=== PATIENT | male | born 1970 | race Caucasian/White ===

== ENCOUNTER 2025-04-05 10:22 | Inpatient (IN) | payer OTHER ==
[~2025-04-05] VITALS: Ht 188 cm; Wt 116.2 kg
--- NOTE | 2025-04-05 10:44 | ED.PDOC ---
History of Present Illness HPI Comments 54 year old male presents to the ED via EMS with a chief complaint of syncopal episode onset today (04/05/25). Patient states he was in court, was not feeling well, woke up on the ground surrounded by court staff and currently symptoms have improved. Per EMS, patient began experienced a witnessed syncopal episode, was shaking, pale, diaphoretic. Patient states he has been experiencing RT knee pain for the past 2 weeks. Denies chest pain, shortness of breath, dizziness, headache, blurry vision, abdominal pain. No other symptoms or modifying factors present at this time. Chief Complaint: Seizure Time Seen by MD: 10:30 Reviewed Notes: Medications, Allergies Allergies: Coded Allergies: Sulfa Antibiotics (Unverified Allergy, Mild, 04/06/25) "Sensitivity, itchy after a few days." Information Source: Patient, Relative, Emergency Med Personnel Mode of Arrival: EMS Severity: Moderate Timing: Hours Duration: Since onset Prehospital treatment: None Past Medical History PAST MEDICAL HISTORY: Denies Surgical History: Denies all surgeries Family History Family History: Reviewed,noncontributory to illness, No family hx of Cancer, No family hx of DM, No family hx of Heart reena, No family hx of HTN, No family hx ofKidney reena, No family hx of Liver reena, No family hx of Lung reena, No family hx of Stroke Social History Smoker: Non-Smoker Alcohol: Denies ETOH Use Drugs: Denies Drug Use Lives In: Home Constitutional: reports: sweats; denies: chills, diaphoresis, fatigue, fever, malaise, weakness, others EENTM: denies: blurred vision, double vision, ear bleeding, ear discharge, ear drainage, ear pain, ear ringing, eye pain, eye redness, hearing loss, mouth pain, mouth swelling, nasal discharge, nose bleeding, nose congestion, nose pain, photophobia, tearing, throat pain, throat swelling, voice changes, others Respiratory: denies: cough, hemoptysis, orthopnea, SOB at rest, shortness of breath, SOB with excertion, stridor, wheezing, others Cardiovascular: denies: chest pain, dizzy spells, diaphoresis, Dyspnea on exertion, edema, irregular heart beat, left arm pain, lightheadedness, palpitations, PND, syncope, others Gastrointestinal: denies: abdomen distended, abdominal pain, blood streaked bowels, constipated, diarrhea, dysphagia, difficulty swallowing, hematemesis, melena, nausea, poor appetite, poor fluid intake, rectal bleeding, rectal pain, vomiting, others Genitourinary: denies: burning, dysuria, flank pain, frequency, hematuria, incontinence, penile discharge, penile sore, pain, testicle pain, testicle swelling, urgency, others Neurological: reports: others (syncope); denies: dizziness, fainting, headache, left sided numbness, left sided weakness, numbness, paresthesia, pre-existing deficit, right sided numbness, right sided weakness, seizure, speech problems, tingling, tremors, weakness Musculoskeletal: reports: others (RT knee pain); denies: back pain, gout, joint pain, joint swelling, muscle pain, muscle stiffness, neck pain Integumetry: denies: bruises, change in color, change in hair/nails, dryness, laceration, lesions, lumps, rash, wounds, others Allergic/Immunocompromised: denies: Difficulty Healing, Frequent Infections, Hives, Itching, others Hematologic/Lymphatic: denies: anemia, blood clots, easy bleeding, easy bruising, swollen glands, others Endocrine: denies: excessive hunger, excessive sweating, excessive thirst, excessive urination, flushing, intolerance to cold, intolerance to heat, unexplained weight gain, unexplained weight loss, others Psychiatric: denies: anxiety, bipolar disorder, depression, hopeless, panic disorder, schizophrenia, sleepless, suicidal, others All Other Systems: Reviewed and Negative Physical Exam General Appearance: No Apparent Distress, Normal HEENT: Normal ENT Inspection, Pharynx Normal, TMs Normal Neck: Full Range of Motion, Non-Tender, Normal, Normal Inspection Respiratory: Chest Non-Tender, Lungs Clear, No Accessory Muscle Use, No Respiratory Distress, Normal Breath Sounds Cardiovascular: No Edema, No JVD, No Murmur, No Gallop, Normal Peripheral Pulses, Regular Rate/Rhythm Breast Exam: Deferred Gastrointestinal: No Organomegaly, Non Tender, No Pulsatile Mass, Normal Bowel Sounds, Soft Genitalia: Deferred Pelvic: Deferred Rectal: Deferred Extremities: No calf tenderness, Normal capillary refill, Normal inspection, Normal range of motion, Non-tender, No pedal edema Musculoskeletal : Apperance: Normal Neurologic: Alert, elevator runner II-XII nml as Tested, No Motor Deficits, Normal Affect, Normal Mood, No Sensory Deficits Cerebellar Function: Normal Reflexes: Normal Skin: Dry, Normal Color, Warm Lymphatic: No Adenopathy Was a procedure done? Was a procedure done?: No Differential Dx Considerations may include: CVA, ACS, epilepsy, cardiac arrhythmia, electrolyte abnormality, urinary tract infection X-Ray, Labs, Meds, VS Vital Signs Date Time Temp Pulse Resp B/P (MAP) Pulse Ox O2 Delivery O2 Flow Rate FiO2 04/05/25 14:00 66 15 118/69 (85) 94 04/05/25 12:00 61 17 122/79 (93) 95 04/05/25 10:49 69 12 95 Room Air* 0 21 04/05/25 10:41 97.8 69 12 123/78 (93) 95 97.8 04/05/25 10:31 97.8 65 19 126/81 (96) 98 97.8 04/05/25 10:25 63 Lab Test 04/05/25 11:35 04/05/25 10:48 Range/Units Troponin I High Sensitivity < 3 L < 3 L </=54 ng/L White Blood Count 5.1 4.4-10.8 10^3/uL Red Blood Count 4.60 4.5-5.90 10^6/uL Hemoglobin 14.0 13.5-17.5 g/dL Hematocrit 40.8 L 41.0-53.0 % Mean Corpuscular Volume 88.7 80.0-100.0 fL Mean Corpuscular Hemoglobin 30.4 28.0-32.0 pg Mean Corpuscular Hemoglobin Concent 34.3 32.0-36.0 g/dL Red Cell Distribution Width 13.3 11.8-14.3 % Platelet Count 181 140-450 10^3/uL Mean Platelet Volume 9.7 6.9-10.8 fL Neutrophils (%) (Auto) 57.6 37.0-80.0 % Lymphocytes (%) (Auto) 16.2 10.0-50.0 % Monocytes (%) (Auto) 10.6 0.0-12.0 % Eosinophils (%) (Auto) 14.7 H 0.0-7.0 % Basophils (%) (Auto) 0.9 0.0-2.0 % Neutrophils # (Auto) 2.9 1.6-8.6 10 ^3/uL Lymphocytes # (Auto) 0.8 0.4-5.4 10 ^3/uL Monocytes # (Auto) 0.5 0-1.3 10 ^3/uL Eosinophils # (Auto) 0.8 0-0.8 10 ^3/uL Basophils # (Auto) 0 0-0.2 10 ^3/uL Nucleated Red Blood Cells 0.2 % Erythrocyte Sedimentation Rate 6 0-20 mm/hr Sodium Level 139 136-145 mmol/L Potassium Level 4.6 3.5-5.1 mmol/L Chloride Level 103 98-107 mmol/L Carbon Dioxide Level 28 20-31 mmol/L Anion Gap 8 5-15 Blood Urea Nitrogen 24 H 9-23 mg/dL Creatinine 1.31 H 0.700-1.30 mg/dL Glomerular Filtration Rate Calc 65 >90 mL/min BUN/Creatinine Ratio 18.3 10.0-20.0 Serum Glucose 110 H 74-106 mg/dL Hemoglobin A1c 5.2 <5.7 % A1C Uric Acid 6.4 3.7-9.2 mg/dL Calcium Level 10.3 8.7-10.4 mg/dL Total Bilirubin 0.8 0.2-1.0 mg/dL Aspartate Amino Transferase (AST) 20 13-40 U/L Alanine Aminotransferase (ALT) 21 7-40 U/L Alkaline Phosphatase 41 L 46-116 U/L C-Reactive Protein High Sensitivity 0.09 <1.0 mg/dL Total Protein 6.9 5.7-8.2 g/dL Albumin 4.6 3.2-4.8 g/dL Triglycerides Level 117 < 150 mg/dL Cholesterol Level 167 < 200 mg/dL LDL Cholesterol 100 H < 100 mg/dL HDL Cholesterol 54 40-59 mg/dL Thyroid Stimulating Hormone (TSH) 1.54 0.55-4.78 uIU/mL Time of 1ST Reevaluation: 11:00 Reevaluation 1ST: Unchanged Patient Education/Counseling: Diagnosis, Treatment, Prognosis Family Education/Counseling: Diagnosis, Treatment, Prognosis Additional Information The following tests were ordered, and results were reviewed by me: EKG -x3, CBC, CMP, UA, TROP -x3, XY CHEST, CT HEAD WO CONTRAST, XY R KNEE 4V Additional Information was gathered from interviewing the following independent historians: EMS, daughter I reviewed and agreed with the following test results read by other providers: XY CHEST, CT HEAD WO CONTRAST, XY R KNEE 4V I discussed treatment and results with medical personnel and: patient, daughter Comprehensive systems review obtained and negative except for what is stated in the HPI. Departure 1 Departure Time of Disposition: 17:22 (Patient presented with syncope today and should be admitted. Data: 1. I ordered and reviewed the result of at least 3 labs including a CBC, BMP, and troponin. 2. I independently interpreted the following tests: EKG which shows a normal sinus and a chest x-ray which shows benign chest and a CT head which shows benign brain.Risk:This patient has a high risk of morbidity due to further diagnostic testing or treatment and may suffer from an acute cardiac, neurologic, or infectious disorder. Rationale: Patient should be admitted to the hospital for further management.) Impression: Primary Impression: Syncope and collapse Additional Impression: Right knee pain Qualified Codes: M25.561 - Pain in right knee Disposition: 09 ADMITTED INPATIENT Admit to: Tele Condition: Guarded Critical Care Note Critical Care Time?: Yes Critical care comment: Syncope and collapse Authorized and Performed by: Vijay Aguilar MD Total critical care time: Approximately 38 minutes Due to a high probability of clinically significant, life threatening deterioration, the patient required my highest level of preparedness to intervene emergently and I personally spent this critical care time directly and personally managing the patient. This critical care time included obtaining a history; examining the patient; pulse oximetry; ordering and review of studies; arranging urgent treatment with development of a management plan; evaluation of patient's response to treatment; frequent reassessment; and, discussions with other providers. This critical care time was performed to assess and manage the high probability of imminent, life-threatening deterioration that could result in multi-organ failure. It was exclusive of separately billable procedures and treating other patients and teaching time. Please see my other sections and the rest of the note for further information on patient assessment and treatment. Stability Stability form required: No I personally scribed for VIJAY AGUILAR MD ([email or web address]) on 04/05/25 at 10:44. Electronically submitted by Sandra Michele ([email or web address]). I personally scribed for VIJAY AGUILAR MD ([email or web address]) on 04/05/25 at 10:53. Electronically submitted by Sandra Michele ([email or web address]). I personally scribed for VIJAY AGUILAR MD ([email or web address]) on 04/05/25 at 10:56. Electronically submitted by Sandra Michele ([email or web address]). VIJYA AGUILAR MD April 05, 2025 10:44
[2025-04-05 10:49] VITALS: PULSE 69; RESP 12; O2SAT 95
[2025-04-05 11:13] LABS: Basophils # (auto) 0 10 ^3/uL (0-0.2); Basophils % (auto) 0.9 % (0.0-2.0); Eosinophils # (auto) 0.8 10 ^3/uL (0-0.8); Eosinophils % (auto) 14.7 % (0.0-7.0); Hematocrit 40.8 % (41.0-53.0); Lymphocytes # (auto) 0.8 10 ^3/uL (0.4-5.4); Lymphocytes % (auto) 16.2 % (10.0-50.0); Mean Corpuscular Hemoglobin 30.4 pg (28.0-32.0); Mean Corpuscular Hgb Conc. 34.3 g/dL (32.0-36.0); Mean Corpuscular Volume 88.7 fL (80.0-100.0); Monocytes # (auto) 0.5 10 ^3/uL (0-1.3); Monocytes % (auto) 10.6 % (0.0-12.0); Neutrophils # (auto) 2.9 10 ^3/uL (1.6-8.6); Neutrophils % (auto) 57.6 % (37.0-80.0); Nucleated Red Blood Cells % 0.2 %; Platelet Count (auto) 181 10^3/uL (140-450); Red Cell Distribution Width 13.3 % (11.8-14.3); White Blood Cell 5.1 10^3/uL (4.4-10.8)
[2025-04-05 11:20] LABS: Alanine Aminotransferase 21 U/L (7-40); Albumin 4.6 g/dL (3.2-4.8); Anion Gap 8 (5-15); Aspartate Aminotransferase 20 U/L (13-40); BUN/Creatinine Ratio 18.3 (10.0-20.0); Bilirubin, Total 0.8 mg/dL (0.2-1.0); Calcium 10.3 mg/dL (8.7-10.4); Carbon Dioxide 28 mmol/L (20-31); Chloride 103 mmol/L (98-107); Potassium 4.6 mmol/L (3.5-5.1); Sodium 139 mmol/L (136-145); Total Protein 6.9 g/dL (5.7-8.2)
[2025-04-05 11:21] LABS: Alkaline Phosphatase 41 U/L (46-116); Blood Urea Nitrogen 24 mg/dL (9-23); Glucose 110 mg/dL (74-106)
--- NOTE | 2025-04-05 11:23 | DVH ---
EXAM: CT HEAD WITHOUT CONTRAST HISTORY: syncope COMPARISON: None TECHNIQUE: Axial images of the head were obtained and reformatted in coronal and sagittal planes. All CT scans at this medical facility are performed using dose modulation techniques as appropriate t o a performed exam including the following: Automated exposure control was utilized; adjustment of th e MA and/or KV according to patient size; and use of iterative reconstruction technique. CT Dose: CTDI volume is 66.29 mGy. Dose-length product is 1062.42 mGy*cm FINDINGS: There is no evidence of acute intracranial hemorrhage, mass, mass effect midline shift. There is no h ydrocephalus or extra-axial fluid collection. Allen-white matter differentiation is maintained. The visualized paranasal sinuses and mastoid air cells are clear. The calvarium is intact. IMPRESSION: 1. No acute intracranial process. HS:Y
--- NOTE | 2025-04-05 11:45 | DVH ---
Indication: right knee pain Technique: 4 views right knee Comparison: None FINDINGS/IMPRESSION: No radiographic evidence for acute fracture or dislocation. Moderate tricompartmental degenerative j oint disease. Large suprapatellar effusion. Old MCL injury. Enthesopathy at quadriceps insertion upon the patella
--- NOTE | 2025-04-05 11:47 | DVH ---
CHEST RADIOGRAPH Indication: syncope Technique: Single frontal view of the chest was obtained Comparison: None FINDINGS: The cardiac silhouette is unremarkable. The lungs demonstrate perihilar airspace opacities. The pulmo nary vasculature is prominent. There is no pleural effusion.. There is no pneumothorax. IMPRESSION: 1. vascular congestion and bilateral perihilar airspace opacities.Pulmonary
[2025-04-05] MEDS: SODIUM CHLORIDE 0.9% 1,000 ML IV ONE ×2 (12:15→18:56)
[2025-04-05] MEDS ORDERED: ONDANSETRON HCL 4 MG/2 ML VIAL IV PRN (15:45)
[2025-04-05] MEDS ORDERED: ACETAMINOPHEN 325 MG TAB PO PRN (15:45)
[2025-04-05] MEDS ORDERED: MORPHINE SULFATE INJ 2 MG/ml SYRG IV PRN ×2 (15:45)
[2025-04-05] MEDS ORDERED: NITROGLYCERIN 0.4 MG SL TAB SL PRN (15:45)
[2025-04-05] MEDS ORDERED: HYDROcodone-ACET 5/325MG TAB PO PRN (15:45)
--- NOTE | 2025-04-05 16:14 | DVHHP2 ---
History of Present Illness Reason for Visit: Syncope History of Present Illness Jaleel Catalan is a 54-year-old male with past medical history of degenerative disc disease who presents to the ED with a syncopal episode while in court. Patient states that he was sitting down in the court house when suddenly he felt a sugar oliveira for about 5 minutes and passed out. Per court reports from the [facility] from at bedside and Rachael daughter at bedside his hands were shaking as well as his entire body his lips were blue in his skin green with his eyes rolled back and diaphoretic with slurred speech. Patient reports that his stomach felt like it was turning and uncomfortable. When he came to the [facility] was helping him. EMS was called and he is here for evaluation. Patient also reports that his right knee with activity or movement causes him moderate pain, but when resting still, no pain noted. Patient reported that in the mornings he typically eats granola bars and banana. at the bedside states that when he goes to sleep at night he does snore and he has a dry cough with no phlegm production. 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 Patient denies any recent trauma or injury, recent sick contacts, fever or chills, chest pain, shortness of breath, weakness, dizziness, abdominal pain, nausea, vomiting, or diarrhea. Past Medical History Degenerative disc disease Past Surgical History: None Family History: DM, Hypertension, Other (Mom with hypertension, scoliosis, and diabetes) Smoke: <1 pack per day (Vapes) ALCOHOL: occassional Drugs: None Lives: with Family Domestic Violence: Neg Review of Systems Constitutional: Yes: Sweats, Other (Syncope) Allergies: Coded Allergies: Sulfa Antibiotics (Unverified Allergy, Unknown, 04/05/25) Exam Vital Signs Vital Signs Date Time Temp Pulse Resp B/P (MAP) Pulse Ox O2 Delivery O2 Flow Rate FiO2 04/05/25 14:00 66 15 118/69 (85) 94 04/05/25 10:49 Room Air* 0 21 04/05/25 10:41 97.8 97.8 General Appearance: Alert, Oriented X3, Cooperative, No acute distress HEENT: Atraumatic, PERRLA, EOMI, Mucous membr. moist/pink Respiratory: Clear to auscultation, Normal air movement Cardiovascular: Regular rate, Normal S1, Normal S2, No murmurs Abdominal: Normal bowel sounds, Soft, No tenderness, No hepatospenomegaly Extremities: No clubbing, No cyanosis, No edema, Normal pulses, No tenderness/swelling Skin: No significant lesion Neuro: Normal speech, Strength at 5/5 X4 ext, Normal tone, Sensation intact Psych/Mental Status: Mental status NL, Mood NL Labs/Xrays Labs Test 04/05/25 11:35 04/05/25 10:48 Range/Units Troponin I High Sensitivity < 3 L </=54 ng/L White Blood Count 5.1 4.4-10.8 10^3/uL Red Blood Count 4.60 4.5-5.90 10^6/uL Hemoglobin 14.0 13.5-17.5 g/dL Hematocrit 40.8 L 41.0-53.0 % Mean Corpuscular Volume 88.7 80.0-100.0 fL Mean Corpuscular Hemoglobin 30.4 28.0-32.0 pg Mean Corpuscular Hemoglobin Concent 34.3 32.0-36.0 g/dL Red Cell Distribution Width 13.3 11.8-14.3 % Platelet Count 181 140-450 10^3/uL Mean Platelet Volume 9.7 6.9-10.8 fL Neutrophils (%) (Auto) 57.6 37.0-80.0 % Lymphocytes (%) (Auto) 16.2 10.0-50.0 % Monocytes (%) (Auto) 10.6 0.0-12.0 % Eosinophils (%) (Auto) 14.7 H 0.0-7.0 % Basophils (%) (Auto) 0.9 0.0-2.0 % Neutrophils # (Auto) 2.9 1.6-8.6 10 ^3/uL Lymphocytes # (Auto) 0.8 0.4-5.4 10 ^3/uL Monocytes # (Auto) 0.5 0-1.3 10 ^3/uL Eosinophils # (Auto) 0.8 0-0.8 10 ^3/uL Basophils # (Auto) 0 0-0.2 10 ^3/uL Nucleated Red Blood Cells 0.2 % Sodium Level 139 136-145 mmol/L Potassium Level 4.6 3.5-5.1 mmol/L Chloride Level 103 98-107 mmol/L Carbon Dioxide Level 28 20-31 mmol/L Anion Gap 8 5-15 Blood Urea Nitrogen 24 H 9-23 mg/dL Creatinine 1.31 H 0.700-1.30 mg/dL Glomerular Filtration Rate Calc 65 >90 mL/min BUN/Creatinine Ratio 18.3 10.0-20.0 Serum Glucose 110 H 74-106 mg/dL Calcium Level 10.3 8.7-10.4 mg/dL Total Bilirubin 0.8 0.2-1.0 mg/dL Aspartate Amino Transferase (AST) 20 13-40 U/L Alanine Aminotransferase (ALT) 21 7-40 U/L Alkaline Phosphatase 41 L 46-116 U/L Total Protein 6.9 5.7-8.2 g/dL Albumin 4.6 3.2-4.8 g/dL Thyroid Stimulating Hormone (TSH) 1.54 0.55-4.78 uIU/mL Indication: right knee pain Technique: 4 views right knee Comparison: None FINDINGS/IMPRESSION: No radiographic evidence for acute fracture or dislocation. Moderate tricompartmental degenerative joint disease. Large suprapatellar effusion. Old MCL injury. Enthesopathy at quadriceps insertion upon the patella EXAM: CT HEAD WITHOUT CONTRAST HISTORY: syncope COMPARISON: None TECHNIQUE: Axial images of the head were obtained and reformatted in coronal and sagittal planes. All CT scans at this medical facility are performed using dose modulation techniques as appropriate to a performed exam including the following: Automated exposure control was utilized; adjustment of the MA and/or KV according to patient size; and use of iterative reconstruction technique. CT Dose: CTDI volume is 66.29 mGy. Dose-length product is 1062.42 mGy*cm FINDINGS: There is no evidence of acute intracranial hemorrhage, mass, mass effect midline shift. There is no hydrocephalus or extra-axial fluid collection. Allen-white matter differentiation is maintained. The visualized paranasal sinuses and mastoid air cells are clear. The calvarium is intact. IMPRESSION: 1. No acute intracranial process. CHEST RADIOGRAPH Indication: syncope Technique: Single frontal view of the chest was obtained Comparison: None FINDINGS: The cardiac silhouette is unremarkable. The lungs demonstrate perihilar airspace opacities. The pulmonary vasculature is prominent. There is no pleural effusion.. There is no pneumothorax. IMPRESSION: 1. vascular congestion and bilateral perihilar airspace opacities.Pulmonary Assessment/Plan Assessment/Plan Assessment Autonomic imbalance Right large suprapatellar effusion rule out septic arthritis versus gout KENAN Obesity Old MCL injury noted on imaging Vapes Alcohol use History of degenerative disc disease Plan Admit to [facility] IV antibiotics-ceftriaxone Blood cultures Lactic level CRP ESR Hemoglobin A1c Lipid panel Antiemetics Pain management Echo ordered Uric acid UA NS 1 L given ED TSH Ortho consult by ED Right knee x-ray noted CT head noted Chest x-ray noted Troponin negative x2 EKG noted Per patient does not take home medications DVT prophylaxis-not indicated patient ambulating PUD prophylaxis-not indicated no history of GERD or GI bleed Discussed plan of care with patient, patient's spouse, daughter, and nurse Counseled patient on cessation of vape and LL use Counseled patient on lifestyle modifications, diet, and exercise Plan discussed with: Patient, Spouse, Daughter, Other My Orders 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 - 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 Procedure Category Date Status Time Lactic Acid W/ Reflex LAB 04/05/25 Verified Order 15:32 Blood Culture TRACY 04/05/25 Verified 15:32 Erythrocyte LAB 04/05/25 Verified Sedimentation Rate 15:32 C-Reactive Protein LAB 04/05/25 Verified 15:32 Hemoglobin A1c LAB 04/05/25 Verified 15:32 Echo 2d Mode Cardiac US 04/05/25 Verified DOP 15:32 Admit ADMIT 04/05/25 Verified 15:32 Allergies EBENEZER 04/05/25 Verified 15:32 Code Status CODE 04/05/25 Verified 15:32 Hydrocodone-Acet PHA 04/05/25 Verified 5/325mg Tab ([place] 15:45 Ondansetron Hcl PHA 04/05/25 Verified (Zofran) 15:45 Complete Blood Count LAB 04/06/25 Verified 04:00 Comprehensive LAB 04/06/25 Verified Metabolic Panel 04:00 Cardiac DIET 04/05/25 Verified Diet-2gna,Lofat,Lochol Dinner Acetaminophen Tablet PHA 04/05/25 Verified (Tylenol Tablet) 15:45 Morphine Sulfate PHA 04/05/25 Verified Injection 15:45 Nitroglycerin PHA 04/05/25 Verified Sublingual (Ntrostat 15:45 Morphine Sulfate PHA 04/05/25 Verified Injection 15:45 Stat Ekg For Chest EBENEZER 04/05/25 Verified Pain 15:32 Notify Of Changes EBENEZER 04/05/25 Verified From Base 15:32 Academic Registrar For EBENEZER 04/05/25 Verified 24 Hours 15:32 Emergency Dysrhythmia EBENEZER 04/05/25 Verified Protocol 15:32 Rhythm Strips Once EBENEZER 04/05/25 Verified Every Shift 15:32 Oxygen By Nasal RT 04/05/25 Verified Cannula 15:32 Date of Service: April 05, 2025 Billing Provider: CHRYSTAL MEDELLIN Common Visit Codes: [id number] INP/OBS CARE (HIGH) CHRYSTAL MEDELLIN April 05, 2025 16:14
[2025-04-05] MEDS: cefTRIAXone 1GM/50ML D5W 50 ML IV SCH (16:45)
[2025-04-05 16:49] LABS: Urine Bacteria None Seen /hpf (None Seen)
[2025-04-05 16:52] LABS: Erythrocyte Sedimentation Rate 6 mm/hr (0-20)
[2025-04-05 16:58] LABS: Urine Blood Negative /uL (Negative); Urine Clarity Clear (Clear); Urine Color Light-Yellow (Yellow); Urine Protein, UAD Negative (Negative); Urine Specific Gravity 1.009 (1.001-1.035); Urine Squamous Epithelial Cell None Seen /hpf (<5); Urine Urobilinogen Normal (Negative); Urine WBC < 1 /HPF (0-3)
[2025-04-05 17:01] LABS: Triglycerides 117 mg/dL (< 150)
[2025-04-05 17:02] LABS: LDL Cholesterol 100 mg/dL (< 100)
[2025-04-05 17:03] LABS: Cholesterol 167 mg/dL (< 200); HDL Cholesterol 54 mg/dL (40-59)
--- NOTE | 2025-04-05 17:17 | DVH ---
PROCEDURE: MRI MRA ANGIO HEAD BRAIN INDICATION: syncopal Exam Date: 04/05/2025 04:31 PM COMPARISON: None TECHNIQUE: MRA head without intravenous contrast. 3D image postprocessing was performed on a dedicated workstation and images were used for interpretat ion and reporting. FINDINGS: MRA head: There is preserved flow within the bilateral distal internal carotid arteries. There is preserved fl ow within the anterior and middle cerebral arteries. There is preserved flow within the vertebral ar teries, basilar artery, cerebellar arteries and posterior cerebral arteries. There is no evidence of hemodynamically significant intracranial stenosis, proximal occlusion or aneurysm. No abnormal veno us signal is seen. IMPRESSION: 1. No evidence of hemodynamically significant intracranial stenosis, proximal occlusion or aneurysm. HS:Y
--- NOTE | 2025-04-05 17:24 | DVH ---
EXAM: MRI BRAIN HEAD WO CONTRAST CLINICAL HISTORY: syncopal episode COMPARISON: None TECHNIQUE: Multiplanar, multisequence magnetic resonance imaging of the brain was performed after the administra tion of intravenous contrast. FINDINGS: Normal brain volume and formation. No hemorrhages, masses, mass effect, midline shift, herniation or cytotoxic edema following large vas cular territory. No intra-axial or extra-axial fluid collections. No evidence of hydrocephalus. The basal cisterns are patent Sella parasellar regions unremarkable. The cerebellar tonsils are normal position. The cerebellum is unremarkable. The orbits and globes unremarkable. Minimal mucoperiosteal thickening of the ethmoid air cells and in ferior maxillary sinuses. The remainder of the paranasal sinuses and mastoids are clear. There are No worrisome calvarial lesions. IMPRESSION: No evidence of acute intracranial abnormalities.
[2025-04-05 18:04] VITALS: BP 98/58; PULSE 75; RESP 18; TEMP 98.2; O2SAT 99
--- NOTE | 2025-04-05 18:35 | ECG ---
[facility] Test Date: 2025-04-05 Test Time: 16:10:55 Pat Name: HANNAH ABREU Department: ED Room: 0201T A Gender: M [employer]: [place] : 1970 Requested By: VIJAY CURTIS Order Number: [id number] Reading MD: Bronson Chu Measurements Intervals [place] Rate: 58 P: 30 DC: 171 QRS: 4 QRSD: 88 T: 49 QT: 424 QTc: 417 Interpretive Statements Sinus rhythm Low voltage, precordial leads Abnormal R-wave progression, early transition Electronically Signed On 04-06-2025 21:03:58 PDT by Bronson Chu Please click the below link to view image of tracing.
--- NOTE | 2025-04-05 18:41 | DVH ---
Procedure: MRI RT KNEE WITH OUT CON 04/05/2025 04:59 PM INDICATION: right knee pain COMPARISON: Radiograph dated 04/05/2025 TECHNIQUE: MRI of the right knee was performed utilizing multiple appropriate imaging planes and puls e sequences. FINDINGS: Medial meniscus: Large superior surfacing horizontal tear of the body and posterior horn. Lateral meniscus: Mucoid degeneration with no evidence for tear. Anterior cruciate ligament: Unremarkable. Posterior cruciate ligament: Unremarkable. Medial collateral ligament: Unremarkable. Lateral stabilizers: Unremarkable. Extensor mechanism: Unremarkable. Pes anserine Tendons: Unremarkable. Medial compartment: High-grade thinning and irregularity of the articular cartilage specially over th e femoral condyle with associated subchondral marrow edema and mild marginal osteophytosis. Lateral compartment: Moderate irregularity and fissuring in the weight-bearing part of the femoral co ndyle with associated central osteophytosis. Patellofemoral compartment: Unremarkable. Bones: No suspicious lesion. Joint Effusion: Large. Popliteal fossa: Large Reed's cyst. Other: None. IMPRESSION: 1. Tricompartmental osteoarthritis, most prominent and moderate severity in the medial compartment wi th full-thickness loss of articular cartilage, marginal osteophytosis medial meniscal tear. 2. Large suprapatellar joint effusion. 3. Large leaking Reed's cyst.
--- NOTE | 2025-04-05 18:49 | ECG ---
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
[2025-04-05] MEDS ORDERED: SODIUM CHLORIDE 0.9% 1,000 ML IV ONE (19:00)
[2025-04-05 20:00] VITALS: PULSE 69; PULSE 70; RESP 19; O2SAT 94
--- NOTE | 2025-04-05 20:19 | DVH ---
Carotid Duplex Date: 04/05/2025 06:42 PM Clinical History: syncopal episode Comparison: None Technique: Duplex Doppler evaluation of the extracranial carotid and vertebral arteries including col or Doppler and spectral/pulsed waveform analysis was performed. Findings: RIGHT SIDE: The peak systolic velocities are 101 cm/s in the distal CCA and 87 cm/s in the proximal ICA.The ICA/C CA ratio is less than 1. The external carotid artery is patent with peak systolic velocity of 96 cm/s proximally. There is appropriate antegrade flow in the right vertebral artery. 42.3 cm/s LEFT SIDE: The peak systolic velocities are 85.9 cm/s in the distal CCA and 127.6 cm/s in the proximal ICA.. The ICA/CCA ratio is less than 2. The external carotid artery is patent with peak systolic velocity of 74.1 cm/s proximally. There is appropriate antegrade flow in the left vertebral artery, 50.6 cm/s IMPRESSION: 1. No hemodynamically significant stenosis noted in the right carotid system. 2. No hemodynamically significant stenosis noted in the left carotid system. 3. Reference: Radiology 2003; 229:340-346
[2025-04-05 21:00] VITALS: BP 113/68; PULSE 70; RESP 19; TEMP 97.1; O2SAT 94
[2025-04-06] VITALS (9 sets, daily range): BP systolic 103–130; BP diastolic 57–84; PULSE 56–78; RESP 18–19; TEMP 96.3–98.1; O2SAT 91–98
[2025-04-06 06:38] LABS: Basophils # (auto) 0 10 ^3/uL (0-0.2); Basophils % (auto) 0.6 % (0.0-2.0); Eosinophils # (auto) 0.8 10 ^3/uL (0-0.8); Eosinophils % (auto) 14.9 % (0.0-7.0); Hematocrit 38.4 % (41.0-53.0); Lymphocytes # (auto) 1.2 10 ^3/uL (0.4-5.4); Lymphocytes % (auto) 22.5 % (10.0-50.0); Mean Corpuscular Hemoglobin 30.3 pg (28.0-32.0); Mean Corpuscular Hgb Conc. 33.7 g/dL (32.0-36.0); Mean Corpuscular Volume 89.8 fL (80.0-100.0); Monocytes # (auto) 0.5 10 ^3/uL (0-1.3); Monocytes % (auto) 9.7 % (0.0-12.0); Neutrophils # (auto) 2.8 10 ^3/uL (1.6-8.6); Neutrophils % (auto) 52.3 % (37.0-80.0); Platelet Count (auto) 168 10^3/uL (140-450); Red Blood Cells 4.28 10^6/uL (4.5-5.90); Red Cell Distribution Width 13.6 % (11.8-14.3); White Blood Cell 5.3 10^3/uL (4.4-10.8)
[2025-04-06 07:08] LABS: Alanine Aminotransferase 16 U/L (7-40); Anion Gap 9 (5-15); BUN/Creatinine Ratio 16.1 (10.0-20.0); Blood Urea Nitrogen 18 mg/dL (9-23); Calcium 9.3 mg/dL (8.7-10.4); Carbon Dioxide 26 mmol/L (20-31); Glucose 92 mg/dL (74-106); Sodium 143 mmol/L (136-145); Total Protein 6.1 g/dL (5.7-8.2)
[2025-04-06 07:09] LABS: Albumin 4.1 g/dL (3.2-4.8); Aspartate Aminotransferase 15 U/L (13-40)
[2025-04-06 07:10] LABS: Bilirubin, Total 0.5 mg/dL (0.2-1.0)
[2025-04-06 07:18] LABS: Alkaline Phosphatase 36 U/L (46-116); Chloride 108 mmol/L (98-107)
--- NOTE | 2025-04-06 09:25 | DVHINCON2 ---
Date of service: April 06, 2025 Reason for Consultation Right knee osteoarthritis History of Present Illness Mr. Catalan is a 54-year-old male who has been experiencing progressively worsening right knee pain for the last six months without a known injury or incident. Patient notes that he had a previous right knee injury that he was treating conservatively but was doing well for several years before the pain began again. Patient notes that at 1st the pain waxed and waned and would occasionally feel like something would get caught and his knee but over time it was progressively worsening and began limiting his physical activity. Patient is otherwise feeling well denying any other complaints or concerns during my evaluation. Past Medical History Degenerative disc disease Past Surgical History Denies Family History Noncontributory Social History Patient admits to vaping and occasional alcohol use but denied any other illicit substance abuse Allergies: Coded Allergies: Sulfa Antibiotics (Unverified Allergy, Unknown, 04/05/25) Current Medications Current Medications Medications (Trade) Dose Ordered Sig/Hamzah Route PRN Reason Start Time Stop Time Status Last Admin Acetaminophen/ Hydrocodone Bitart (Zortman 5/325MG Tab) 1 tab Q4HP PRN PO MODERATE PAIN (4-6 PAIN SCALE) 04/05/25 15:45 Ondansetron HCl (Zofran) 4 mg Q4HP PRN IV NAUSEA / VOMITING 04/05/25 15:45 Acetaminophen (Tylenol Tablet) 650 mg Q6HP PRN PO PAIN SCALE 1-3 OR TEMP>100.4 04/05/25 15:45 Morphine Sulfate 2 mg Q4HPRN PRN IV SEVERE PAIN (7-10 PAIN SCALE) 04/05/25 15:45 Nitroglycerin (Ntrostat Sublingual) 0.4 mg Q5MINP PRN SL FOR CHEST PAIN 04/05/25 15:45 Morphine Sulfate 2 mg Q30M PRN IV FOR CHEST PAIN 04/05/25 15:45 Ceftriaxone Sodium 50 ml @ 100 mls/hr DAILY@09 IV 04/05/25 16:00 04/05/25 16:45 Review of Systems 10 point review of systems negative except as per HPI Vital Signs Vital Signs Date Time Temp Pulse Resp B/P (MAP) Pulse Ox O2 Delivery O2 Flow Rate FiO2 04/06/25 05:00 96.4 67 19 104/66 (79) 93 96.4 04/05/25 20:00 Room Air* 0 21 Physical Exam General appearance: A&O x4 in no acute distress HEENT: Normal ENT inspection, pharynx normal, TMs normal Neck: Full range of motion, nontender, normal inspection Respiratory: Chest nontender, without accessory muscle use, no respiratory distress Cardiovascular: No edema, no JVD, normal peripheral pulses Gastrointestinal: Soft, nontender, no organomegaly. Musculoskeletal: Right knee range of motion 0-120 with pain on movement, mild edema to the knee, no calf tenderness, normal capillary refill, no pedal edema, neurovascularly intact. Skin: Dry, normal color, warm Lymphatic: No adenopathy Labs/Diagnostic Data Labs Test 04/06/25 04:33 04/05/25 16:21 04/05/25 16:00 04/05/25 11:35 Range/Units White Blood Count 5.3 4.4-10.8 10^3/uL Red Blood Count 4.28 L 4.5-5.90 10^6/uL Hemoglobin 13.0 L 13.5-17.5 g/dL Hematocrit 38.4 L 41.0-53.0 % Mean Corpuscular Volume 89.8 80.0-100.0 fL Mean Corpuscular Hemoglobin 30.3 28.0-32.0 pg Mean Corpuscular Hemoglobin Concent 33.7 32.0-36.0 g/dL Red Cell Distribution Width 13.6 11.8-14.3 % Platelet Count 168 140-450 10^3/uL Mean Platelet Volume 9.9 6.9-10.8 fL Neutrophils (%) (Auto) 52.3 37.0-80.0 % Lymphocytes (%) (Auto) 22.5 10.0-50.0 % Monocytes (%) (Auto) 9.7 0.0-12.0 % Eosinophils (%) (Auto) 14.9 H 0.0-7.0 % Basophils (%) (Auto) 0.6 0.0-2.0 % Neutrophils # (Auto) 2.8 1.6-8.6 10 ^3/uL Lymphocytes # (Auto) 1.2 0.4-5.4 10 ^3/uL Monocytes # (Auto) 0.5 0-1.3 10 ^3/uL Eosinophils # (Auto) 0.8 0-0.8 10 ^3/uL Basophils # (Auto) 0 0-0.2 10 ^3/uL Nucleated Red Blood Cells 0.0 % Sodium Level 143 136-145 mmol/L Potassium Level 4.0 3.5-5.1 mmol/L Chloride Level 108 H 98-107 mmol/L Carbon Dioxide Level 26 20-31 mmol/L Anion Gap 9 5-15 Blood Urea Nitrogen 18 9-23 mg/dL Creatinine 1.12 0.700-1.30 mg/dL Glomerular Filtration Rate Calc 78 >90 mL/min BUN/Creatinine Ratio 16.1 10.0-20.0 Serum Glucose 92 74-106 mg/dL Calcium Level 9.3 8.7-10.4 mg/dL Total Bilirubin 0.5 0.2-1.0 mg/dL Aspartate Amino Transferase (AST) 15 13-40 U/L Alanine Aminotransferase (ALT) 16 7-40 U/L Alkaline Phosphatase 36 L 46-116 U/L Total Protein 6.1 5.7-8.2 g/dL Albumin 4.1 3.2-4.8 g/dL Urine Color Light-yellow Yellow Urine Clarity Clear Clear Urine pH 7.0 5.0-9.0 Urine Specific [place] 1.009 1.001-1.035 Urine Protein Negative Negative Urine Ketones Negative Negative Urine Blood Negative Negative /uL Urine Nitrite Negative Negative Urine Bilirubin Negative Negative Urine Urobilinogen Normal Negative mg/dL Urine Leukocyte Esterase Negative Negative /uL Urine RBC 1 0 - 3 /hpf Urine Microscopic WBC < 1 0-3 /HPF Urine Squamous Epithelial Cells None seen <5 /hpf Urine Bacteria None seen None Seen /hpf Urine Glucose Normal Normal mg/dL Lactic Acid Level 0.7 0.4-2.0 mmol/L Troponin I High Sensitivity < 3 L </=54 ng/L Test 04/05/25 10:48 Range/Units Erythrocyte Sedimentation Rate 6 0-20 mm/hr Hemoglobin A1c 5.2 <5.7 % A1C Uric Acid 6.4 3.7-9.2 mg/dL C-Reactive Protein High Sensitivity 0.09 <1.0 mg/dL Triglycerides Level 117 < 150 mg/dL Cholesterol Level 167 < 200 mg/dL LDL Cholesterol 100 H < 100 mg/dL HDL Cholesterol 54 40-59 mg/dL Thyroid Stimulating Hormone (TSH) 1.54 0.55-4.78 uIU/mL Right knee x-ray reviewed and demonstrated: No radiographic evidence for acute fracture or dislocation. Moderate tricompartmental degenerative joint disease. Large suprapatellar effusion. Right knee MRI reviewed and demonstrated: Tricompartmental osteoarthritis, most prominent and moderate severity in the medial compartment with full-thickness loss of articular cartilage, marginal osteophytosis medial meniscal tear. Large suprapatellar joint effusion. Large leaking Reed's cyst. Assessment Right knee osteoarthritis Plan/Recommendation I had a lengthy discussion with the patient and after discussing his case and reviewing his imaging studies with Dr. Kunz we have recommended against any surgical intervention at this time and instead advised to continue with conservative treatment with pain control and physical activity modification. For pain control I performed a right knee intra-articular steroid injection with 2 mL of triamcinolone and 4 mL of lidocaine done in a sterile fashion with the use of Betadine prep, patient tolerated the procedure well without complications. I advised the patient that he may remain weight-bearing as tolerated with assistance of a cane or walker when the pain is intense. I advised the patient to follow up with our office on an outpatient basis for further evaluation and treatment options. He understood and agreed. Thank you for allowing us to participate in the care of your patient. Plan discussed with: Patient, Daughter ERENDIRA MONTENEGRO SRIDHAR April 06, 2025 09:25
--- NOTE | 2025-04-06 17:04 | DVHSR ---
APPROVED REPORT EXAM: Two-dimensional and M-mode echocardiogram with Doppler and color Doppler. Blood Pressure: 104/66 mmHg INDICATION Syncope RISK FACTORS Obesity: Height: '2, Weight: 255 DIMENSIONS LVDd4.8 (3.8-5.7cm)LA (2D)3.7 (1.9-4.0cm)Aortic Root4.2 (2.0-3.7cm) LVDs3.4 (2.5-4.0cm)LA (MM) (1.9-4.0cm)Aortic Cusp Exc2.3 (1.5-2.0cm) EF (%) 54.0 (55-70%)Rt. Atrium4.5 (1.9-4.0cm)Asc. Aorta cm IVSd0.9 (0.7-1.1cm)RV (D)5.7 (1.8-2.4cm) PWd0.9 (0.7-1.1cm) Mitral Valve MitralMitral Stenosis E wave0.84m/sMV Mean GR.mmHg A wave0.63m/sMV Peak GR.53mmHg E/A ratio1.32D MVAcm2 DECEL [id number] 1/2 Timems Aortic Valve Aortic ValveAortic Stenosis V11.08m/Mandeep Mean GR.4mmHg V21.30m/Mandeep Peak GR.7mmHg LVOT Diameter2.6 (1.8-2.4cm)Doppler AVA4.41cm2 Pulmonic Valve V20.98m/s Tricuspid Valve TR Velocity1.90m/s [id number] Conclusion Sinus rhythm. Mild aortic root enlargement. Mild right ventricular outflow tract enlargement. Right atrial and ri ght ventricular enlargement. Valves appear to be structurally normal. Normal tricuspid pulmonic and aortic valves. Normal mitral valve. Mild MAC. Left ventricular function is preserved at 55-60%. Right ventricular function is normal. Doppler is unremarkable. No pericardial effusion masses or vegetations discernible.
--- NOTE | 2025-04-06 17:09 | DVHPN2 ---
Subjective 54-year-old male with a history of degenerative disc disease of the back otherwise no past medical history came with a chief complaint of syncope that happened yesterday Apparently [place] and he felt a sugar rash and then he passed out This has happened to him before when he had the syncope but it is always associated with an event such as when he had the flu or he was sick with diarrhea No chest pain no shortness a breath EKG shows bradycardia Chest x-ray vascular congestion bilaterally with a perihilar airspace opacities Head CT negative Right knee suprapatellar effusion and moderate tricompartmental degenerative joint disease Brain MRI and MRA is negative Carotid Doppler is negative MRI of the right knee shows tricompartmental osteoarthritis with a marginal ostial 5 ptosis medial meniscal tear and a large suprapatellar joint effusion and a large leaking Reed's cyst Labs showed normal CBC ESR 6 UA is negative Creatinine is high at 1.3 corrected to 1.1 today Cholesterol panel normal with the LDL of 100 Blood pressure is normal to low Heart rate at the time of examination this morning was 60 and regular Changes from previous H/P or p: Changes Objective Vitals Vital Signs Date Time Temp Pulse Resp B/P (MAP) Pulse Ox O2 Delivery O2 Flow Rate FiO2 04/06/25 12:59 97.8 56 18 115/79 (91) 94 97.8 04/06/25 08:00 Room Air* 0 21 Intake/Output Intake and Output 04/06/25 07:00 Intake Total 1750 ml Balance 1750 ml Intake Oral 800 ml IV Total 950 ml # Voids 5 # Bowel Movements 1 General Appearance: Alert, Oriented X3, Cooperative, No acute distress Lungs: Clear to auscultation, Normal air movement Cardiovascular: Regular rate, Normal S1, Normal S2, No murmurs Abdomen: Normal bowel sounds, Soft, No tenderness Extremities: No edema Medications Current Medications Medications Dose Ordered Sig/Hamzah Route Start Time Stop Time Status Last Admin Dose Admin Acetaminophen/ Hydrocodone Bitart 1 tab Q4HP PRN PO 04/05/25 15:45 Ondansetron HCl 4 mg Q4HP PRN IV 04/05/25 15:45 Acetaminophen 650 mg Q6HP PRN PO 04/05/25 15:45 Morphine Sulfate 2 mg Q4HPRN PRN IV 04/05/25 15:45 Nitroglycerin 0.4 mg Q5MINP PRN SL 04/05/25 15:45 Morphine Sulfate 2 mg Q30M PRN IV 04/05/25 15:45 Ceftriaxone Sodium 50 ml @ 100 mls/hr DAILY@09 IV 04/05/25 16:00 04/06/25 10:00 100 MLS/HR Laboratory Results Laboratory Tests 04/06/25 04:33 Chemistry Test 04/06/25 04:33 Albumin 4.1 g/dL (3.2-4.8) Calcium Level 9.3 mg/dL (8.7-10.4) Total Protein 6.1 g/dL (5.7-8.2) LFT Test 04/06/25 04:33 Alanine Aminotransferase (ALT) 16 U/L (7-40) Alkaline Phosphatase 36 U/L (46-116) L Aspartate Amino Transferase (AST) 15 U/L (13-40) Total Bilirubin 0.5 mg/dL (0.2-1.0) Urinalysis Test 04/05/25 16:21 Urine Color Light-yellow (Yellow) Urine Clarity Clear (Clear) Urine pH 7.0 (5.0-9.0) Urine Specific [place] 1.009 (1.001-1.035) Urine Protein Negative (Negative) Urine Ketones Negative (Negative) Urine Blood Negative /uL (Negative) Urine Nitrite Negative (Negative) Urine Bilirubin Negative (Negative) Urine Urobilinogen Normal mg/dL (Negative) Urine Leukocyte Esterase Negative /uL (Negative) Urine RBC 1 /hpf (0 - 3) Urine Microscopic WBC < 1 /HPF (0-3) Urine Squamous Epithelial Cells None seen /hpf (<5) Urine Bacteria None seen /hpf (None Seen) Urine Glucose Normal mg/dL (Normal) Microbiology Microbiology Date/Time Source Procedure Growth Status 04/05/25 16:10 Blood Blood Culture - Preliminary NO GROWTH AFTER 24 HOURS OF INCUBATION. 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 Rule out heart failure Rule out coronary artery disease Plan: Echocardiogram is pending Orthopedic consultation Cardiac consultation Check the orthostatic vital signs Neurology consult Check B12 and folic acid and TSH Repeat a kidney function in the morning IV fluids was given, creatinine has improved Pain control with [place] as needed Observe on telemetry Discussed with the family at the bedside Full code The rest of the management will depend on the hospital course Workup: Chest x-ray vascular congestion bilaterally with a perihilar airspace opacities Head CT negative Right knee suprapatellar effusion and moderate tricompartmental degenerative joint disease Brain MRI and MRA is negative Carotid Doppler is negative MRI of the right knee shows tricompartmental osteoarthritis with a marginal ostial 5 ptosis medial meniscal tear and a large suprapatellar joint effusion and a large leaking Reed's cyst Labs showed normal CBC ESR 6 Troponins are negative UA is negative Creatinine is high at 1.3 corrected to 1.1 today Cholesterol panel normal with the LDL of 100 Plan discussed with: Patient My Orders Orders - DOMENICO SERRANO MD Procedure Category Date Status Time March [facility] 04/06/25 In Process 15:16 Date of Service: April 06, 2025 Billing Provider: DOMENICO SERRANO MD Common Visit Codes: [id number] INP/OBS CARE(HIGH) DOMENICO SERRANO MD April 06, 2025 17:08
--- NOTE | 2025-04-06 23:22 | DVHINCON2 ---
Date of service: April 06, 2025 Referring Physician Judson Reason for Consultation Syncope History of Present Illness This is a 54 year old male without any significant medical history who is brought in by EMS with complaints of syncopal episode. Patient states that he was sitting down in the court house when suddenly he felt a sugar oliveira for about 5 minutes and passed out. Per court reports from the [facility] from at bed side and Rachael daughter at bedside his hands were shaking as well as his entire body his lips were blue in his skin green with his eyes rolled back and diaphoretic with slurred speech. Patient reports that his stomach felt like it was turning and uncomfortable. When he came to the [employer] was helping him. at the bedside states that when he goes to sleep at night he does snore and he has a dry cough with no phlegm production. 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 Troponin is negative. Chest x-ray shows pulmonary vascular congestion and bilateral perihilar airspace opacities. CT head is unremarkable. Patient has had syncopal episodes in the past, neuro ministerio at the [place] was negative. No evidence ot orthostatic hypotension. EKG is normal. Reports previous alcohol use. Patient was admitted to the hospital. I am asked to consult on this patient. Family History: Diabetes mellitus G8 MOTHER FH: scoliosis G8 MOTHER Hypercholesterolemia G8 MOTHER Hypertension G8 MOTHER Allergies: Coded Allergies: Sulfa Antibiotics (Unverified Allergy, Mild, 04/06/25) "Sensitivity, itchy after a few days." Review of Systems Constitutional: reports: sweats; denies: chills, diaphoresis, fatigue, fever, malaise, weakness, others EENTM: denies: blurred vision, double vision, ear bleeding, ear discharge, ear drainage, ear pain, ear ringing, eye pain, eye redness, hearing loss, mouth pain, mouth swelling, nasal discharge, nose bleeding, nose congestion, nose pain, photophobia, tearing, throat pain, throat swelling, voice changes, others Respiratory: denies: cough, hemoptysis, orthopnea, SOB at rest, shortness of breath, SOB with excertion, stridor, wheezing, others Cardiovascular: denies: chest pain, dizzy spells, diaphoresis, Dyspnea on exertion, edema, irregular heart beat, left arm pain, lightheadedness, palpitations, PND, syncope, others Gastrointestinal: denies: abdomen distended, abdominal pain, blood streaked bowels, constipated, diarrhea, dysphagia, difficulty swallowing, hematemesis, melena, nausea, poor appetite, poor fluid intake, rectal bleeding, rectal pain, vomiting, others Genitourinary: denies: burning, dysuria, flank pain, frequency, hematuria, incontinence, penile discharge, penile sore, pain, testicle pain, testicle swelling, urgency, others Neurological: reports: others (syncope); denies: dizziness, fainting, headache, left sided numbness, left sided weakness, numbness, paresthesia, pre-existing deficit, right sided numbness, right sided weakness, seizure, speech problems, tingling, tremors, weakness Musculoskeletal: reports: others (RT knee pain); denies: back pain, gout, joint pain, joint swelling, muscle pain, muscle stiffness, neck pain Integumetry: denies: bruises, change in color, change in hair/nails, dryness, laceration, lesions, lumps, rash, wounds, others Allergic/Immunocompromised: denies: Difficulty Healing, Frequent Infections, Hives, Itching, others Hematologic/Lymphatic: denies: anemia, blood clots, easy bleeding, easy bruising, swollen glands, others Endocrine: denies: excessive hunger, excessive sweating, excessive thirst, excessive urination, flushing, intolerance to cold, intolerance to heat, unexplained weight gain, unexplained weight loss, others Psychiatric: denies: anxiety, bipolar disorder, depression, hopeless, panic disorder, schizophrenia, sleepless, suicidal, others All Other Systems: Reviewed and Negative Vital Signs Vital Signs Date Time Temp Pulse Resp B/P (MAP) Pulse Ox O2 Delivery O2 Flow Rate FiO2 04/06/25 18:20 98.0 64 19 113/69 (84) 96 98.0 59 130/77 (94) 78 130/84 (99) 04/06/25 08:00 Room Air* 0 21 Physical Exam GENERAL: Alert and oriented x 3. No acute distress. EYES: PERRL, EOMI. Anicteric. HENT: Moist mucous membranes. LUNGS: Clear to auscultation bilaterally. CARDIOVASCULAR: Regular rate and rhythm. ABDOMEN: Soft, nontender and nondistended. EXTREMITIES: No edema. NEUROLOGIC: No focal neurological deficits. SKIN: Warm, dry. Labs/Diagnostic Data Labs Test 04/06/25 04:33 04/05/25 16:21 04/05/25 16:00 04/05/25 11:35 Range/Units White Blood Count 5.3 4.4-10.8 10^3/uL Red Blood Count 4.28 L 4.5-5.90 10^6/uL Hemoglobin 13.0 L 13.5-17.5 g/dL Hematocrit 38.4 L 41.0-53.0 % Mean Corpuscular Volume 89.8 80.0-100.0 fL Mean Corpuscular Hemoglobin 30.3 28.0-32.0 pg Mean Corpuscular Hemoglobin Concent 33.7 32.0-36.0 g/dL Red Cell Distribution Width 13.6 11.8-14.3 % Platelet Count 168 140-450 10^3/uL Mean Platelet Volume 9.9 6.9-10.8 fL Neutrophils (%) (Auto) 52.3 37.0-80.0 % Lymphocytes (%) (Auto) 22.5 10.0-50.0 % Monocytes (%) (Auto) 9.7 0.0-12.0 % Eosinophils (%) (Auto) 14.9 H 0.0-7.0 % Basophils (%) (Auto) 0.6 0.0-2.0 % Neutrophils # (Auto) 2.8 1.6-8.6 10 ^3/uL Lymphocytes # (Auto) 1.2 0.4-5.4 10 ^3/uL Monocytes # (Auto) 0.5 0-1.3 10 ^3/uL Eosinophils # (Auto) 0.8 0-0.8 10 ^3/uL Basophils # (Auto) 0 0-0.2 10 ^3/uL Nucleated Red Blood Cells 0.0 % Sodium Level 143 136-145 mmol/L Potassium Level 4.0 3.5-5.1 mmol/L Chloride Level 108 H 98-107 mmol/L Carbon Dioxide Level 26 20-31 mmol/L Anion Gap 9 5-15 Blood Urea Nitrogen 18 9-23 mg/dL Creatinine 1.12 0.700-1.30 mg/dL Glomerular Filtration Rate Calc 78 >90 mL/min BUN/Creatinine Ratio 16.1 10.0-20.0 Serum Glucose 92 74-106 mg/dL Calcium Level 9.3 8.7-10.4 mg/dL Total Bilirubin 0.5 0.2-1.0 mg/dL Aspartate Amino Transferase (AST) 15 13-40 U/L Alanine Aminotransferase (ALT) 16 7-40 U/L Alkaline Phosphatase 36 L 46-116 U/L Total Protein 6.1 5.7-8.2 g/dL Albumin 4.1 3.2-4.8 g/dL Urine Color Light-yellow Yellow Urine Clarity Clear Clear Urine pH 7.0 5.0-9.0 Urine Specific [place] 1.009 1.001-1.035 Urine Protein Negative Negative Urine Ketones Negative Negative Urine Blood Negative Negative /uL Urine Nitrite Negative Negative Urine Bilirubin Negative Negative Urine Urobilinogen Normal Negative mg/dL Urine Leukocyte Esterase Negative Negative /uL Urine RBC 1 0 - 3 /hpf Urine Microscopic WBC < 1 0-3 /HPF Urine Squamous Epithelial Cells None seen <5 /hpf Urine Bacteria None seen None Seen /hpf Urine Glucose Normal Normal mg/dL Lactic Acid Level 0.7 0.4-2.0 mmol/L Troponin I High Sensitivity < 3 L </=54 ng/L Test 04/05/25 10:48 Range/Units Erythrocyte Sedimentation Rate 6 0-20 mm/hr Hemoglobin A1c 5.2 <5.7 % A1C Uric Acid 6.4 3.7-9.2 mg/dL C-Reactive Protein High Sensitivity 0.09 <1.0 mg/dL Triglycerides Level 117 < 150 mg/dL Cholesterol Level 167 < 200 mg/dL LDL Cholesterol 100 H < 100 mg/dL HDL Cholesterol 54 40-59 mg/dL Thyroid Stimulating Hormone (TSH) 1.54 0.55-4.78 uIU/mL Microbiology Date/Time Source Procedure Growth Status 04/05/25 16:10 Blood Blood Culture - Preliminary NO GROWTH AFTER 24 HOURS OF INCUBATION. Resulted Assessment Syncope, recurrent. Acute kidney injury most likely due to vasomotor nephropathy. Bradycardia. Hypotension. 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 Plan/Recommendation I agree with your ongoing assessment and care of plan. Telemetry reviewed. Echocardiogram. Stress test. Morphine and [place] for pain management. IV antibiotics as ordered. Nitro SL. Additional plan as per the hospital course. A total of 45 minutes was spent reviewing the patient record, examining the patient, making a diagnostic and therapeutic plan, discussing this plan with medical personnel, following up on diagnostic studies and following the patient for clinical stability excluding any and all procedures. At least 50% of this ti me was spent in direct, [id number] contact. Plan discussed with: Patient TONY DILLON MD April 06, 2025 22:27
[2025-04-07] VITALS (9 sets, daily range): BP systolic 102–136; BP diastolic 62–87; PULSE 56–75; RESP 16–19; TEMP 96.5–98.1; O2SAT 93–98
[2025-04-07 05:21] LABS: Alanine Aminotransferase 17 U/L (7-40); Albumin 4.3 g/dL (3.2-4.8); Anion Gap 8 (5-15); Aspartate Aminotransferase 13 U/L (13-40); BUN/Creatinine Ratio 16.8 (10.0-20.0); Blood Urea Nitrogen 17 mg/dL (9-23); Calcium 9.7 mg/dL (8.7-10.4); Carbon Dioxide 26 mmol/L (20-31); Glucose 99 mg/dL (74-106); Magnesium 1.9 mg/dL (1.6-2.6); Potassium 3.9 mmol/L (3.5-5.1); Sodium 142 mmol/L (136-145); Total Protein 6.4 g/dL (5.7-8.2)
[2025-04-07 05:22] LABS: Bilirubin, Total 0.5 mg/dL (0.2-1.0)
[2025-04-07 05:35] LABS: Alkaline Phosphatase 37 U/L (46-116); Chloride 108 mmol/L (98-107)
--- NOTE | 2025-04-07 13:09 | DVHPN2 ---
Subjective No new complaints He says he feels fine, no dizziness no lightheadedness no chest pain Changes from previous H/P or p: Changes Objective Vitals Vital Signs Date Time Temp Pulse Resp B/P (MAP) Pulse Ox O2 Delivery O2 Flow Rate FiO2 04/07/25 09:00 97.8 65 16 121/74 (90) 96 97.8 04/06/25 19:50 Room Air* 0 21 Intake/Output Intake and Output 04/07/25 07:00 Intake Total 3350 ml Balance 3350 ml Intake Oral 3300 ml IV Total 50 ml # Voids 12 General Appearance: Alert, Oriented X3, Cooperative, No acute distress Lungs: Clear to auscultation, Normal air movement Cardiovascular: Regular rate, Normal S1, Normal S2, No murmurs Abdomen: Normal bowel sounds, Soft, No tenderness Extremities: No edema Medications Current Medications Medications Dose Ordered Sig/Hamzah Route Start Time Stop Time Status Last Admin Dose Admin Acetaminophen/ Hydrocodone Bitart 1 tab Q4HP PRN PO 04/05/25 15:45 Ondansetron HCl 4 mg Q4HP PRN IV 04/05/25 15:45 Acetaminophen 650 mg Q6HP PRN PO 04/05/25 15:45 Morphine Sulfate 2 mg Q4HPRN PRN IV 04/05/25 15:45 Nitroglycerin 0.4 mg Q5MINP PRN SL 04/05/25 15:45 Morphine Sulfate 2 mg Q30M PRN IV 04/05/25 15:45 Ceftriaxone Sodium 50 ml @ 100 mls/hr DAILY@09 IV 04/05/25 16:00 04/07/25 11:57 100 MLS/HR Laboratory Results Laboratory Tests 04/06/25 04:33 04/07/25 04:30 Chemistry Test 04/07/25 04:30 Albumin 4.3 g/dL (3.2-4.8) Calcium Level 9.7 mg/dL (8.7-10.4) Magnesium Level 1.9 mg/dL (1.6-2.6) Total Protein 6.4 g/dL (5.7-8.2) LFT Test 04/07/25 04:30 Alanine Aminotransferase (ALT) 17 U/L (7-40) Alkaline Phosphatase 37 U/L (46-116) L Aspartate Amino Transferase (AST) 13 U/L (13-40) Total Bilirubin 0.5 mg/dL (0.2-1.0) HgA1c, TSH Test 04/07/25 04:30 Thyroid Stimulating Hormone (TSH) 1.47 uIU/mL (0.55-4.78) Urinalysis Test 04/05/25 16:21 Urine Color Light-yellow (Yellow) Urine Clarity Clear (Clear) Urine pH 7.0 (5.0-9.0) Urine Specific [place] 1.009 (1.001-1.035) Urine Protein Negative (Negative) Urine Ketones Negative (Negative) Urine Blood Negative /uL (Negative) Urine Nitrite Negative (Negative) Urine Bilirubin Negative (Negative) Urine Urobilinogen Normal mg/dL (Negative) Urine Leukocyte Esterase Negative /uL (Negative) Urine RBC 1 /hpf (0 - 3) Urine Microscopic WBC < 1 /HPF (0-3) Urine Squamous Epithelial Cells None seen /hpf (<5) Urine Bacteria None seen /hpf (None Seen) Urine Glucose Normal mg/dL (Normal) Microbiology Microbiology Date/Time Source Procedure Growth Status 04/05/25 16:10 Blood Blood Culture - Preliminary NO GROWTH AFTER 24 HOURS OF INCUBATION. 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 Rule out heart failure Rule out coronary artery disease Plan: Echocardiogram is pending Orthopedic consultation Cardiac consultation Check the orthostatic vital signs Neurology consult Check B12 and folic acid and TSH Repeat a kidney function in the morning IV fluids was given, creatinine has improved Pain control with [place] as needed Observe on telemetry Discussed with the family at the bedside Full code The rest of the management will depend on the hospital course Workup: Chest x-ray vascular congestion bilaterally with a perihilar airspace opacities Head CT negative Right knee suprapatellar effusion and moderate tricompartmental degenerative joint disease Brain MRI and MRA is negative Carotid Doppler is negative MRI of the right knee shows tricompartmental osteoarthritis with a marginal ostial 5 ptosis medial meniscal tear and a large suprapatellar joint effusion and a large leaking Reed's cyst Labs showed normal CBC ESR 6 Troponins are negative UA is negative Creatinine is high at 1.3 corrected to 1.1 today Cholesterol panel normal with the LDL of 100 04/07/2025: Workup so far has been negative Heart rate is running between 60-65 Cardiology saw the patient recommended a stress test which will be done tomorrow Continue the current management pending the stress test Plan discussed with: Patient My Orders Orders - DOMENICO SERRANO MD Procedure Category Date Status Time March Shower EBENEZER 04/06/25 In Process 15:16 * Cardiology Consult CONS 04/06/25 Transmitted 17:06 * Neurology Consult CONS 04/06/25 Transmitted 17:06 Orthostatic Vital ORDERS 04/06/25 Transmitted Signs 17:06 Vitamin B12 LAB 04/07/25 In Process 04:00 Folate (Folic Acid) LAB 04/07/25 In Process 04:00 Date of Service: April 07, 2025 Billing Provider: DOMENICO SERRANO MD Common Visit Codes: [id number] INP/OBS CARE(HIGH) DOMENICO SERRANO MD April 07, 2025 13:09
--- NOTE | 2025-04-07 22:58 | DVHPN2 ---
Progress Note - Dictate Date Seen: April 07, 2025 Medical Necessity Reason Pt with a Central, PICC or Fol: No Subjective Patient was seen and evaluated in follow up. No overnight events. Patient resting in bed. Patient denies any dizziness or blurred vision. Echocardiogram and cardiac stress test are pending. Telemetry reviewed. vital signs Vital Sign Date Time Temp Pulse Resp B/P (MAP) Pulse Ox O2 Delivery O2 Flow Rate FiO2 04/07/25 09:00 97.8 65 16 121/74 (90) 96 97.8 04/06/25 19:50 Room Air* 0 21 Total Intake and Output 04/06/25 04/06/25 04/07/25 15:00 23:00 07:00 Intake Total 50 ml 2100 ml 1200 ml Balance 50 ml 2100 ml 1200 ml medications Current Medications Medications Dose Ordered Sig/Hamzah Route Start Time Stop Time Status Last Admin Dose Admin Acetaminophen/ Hydrocodone Bitart 1 tab Q4HP PRN PO 04/05/25 15:45 Ondansetron HCl 4 mg Q4HP PRN IV 04/05/25 15:45 Acetaminophen 650 mg Q6HP PRN PO 04/05/25 15:45 Morphine Sulfate 2 mg Q4HPRN PRN IV 04/05/25 15:45 Nitroglycerin 0.4 mg Q5MINP PRN SL 04/05/25 15:45 Morphine Sulfate 2 mg Q30M PRN IV 04/05/25 15:45 Ceftriaxone Sodium 50 ml @ 100 mls/hr DAILY@09 IV 04/05/25 16:00 04/07/25 11:57 100 MLS/HR objective GENERAL: Alert and oriented x 3. No acute distress. EYES: PERRL, EOMI. Anicteric. HENT: Moist mucous membranes. LUNGS: Clear to auscultation bilaterally. CARDIOVASCULAR: Regular rate and rhythm. ABDOMEN: Soft, nontender and nondistended. EXTREMITIES: No edema. NEUROLOGIC: No focal neurological deficits. SKIN: Warm, dry. laboratory and microbiology Laboratory Tests 04/07/25 04:30 04/06/25 04:33 Test 04/07/25 04:30 Range/Units Serum Glucose 99 74-106 mg/dL Problem List Syncope, recurrent. Acute kidney injury most likely due to vasomotor nephropathy. Bradycardia. Hypotension. 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 Assessment/Plan Continued all current supportive medical care. Echocardiogram. Stress test. Morphine and [place] for pain management. IV antibiotics as ordered. Nitro SL. Additional plan as per the hospital course. Plan discussed with: Patient TONY DILLON MD April 07, 2025 12:58
--- NOTE | 2025-04-07 23:09 | BSKYNEURO ---
[place] [facility] Neuro Note # Demographics Consult Type: General Neurology Patient Location: Inpatient First Name: Jaleel Last Name: Hossein Date of : 1970 Age: 54 Gender: Male Facility: [facility] Time of Initial Page (): 04/07/2025 22:46 Time of Return Call (): 04/07/2025 22:46 # HPI History: Patient is coming to the ER for an episode of passing out; he was at work and had an episode of passing out. He has been having these episodes for past 10 y rs; patient mentioned that he gets a feeling before the episode and lasts 20-30 min. He has a "queasy feeling" in the stomach. Afterwards he will lose consciousness and lasted few min. He was told that he was shaking. Denied tongue bite; had h/o bladder incontinence. Denied confusion after the episode. Denied brain surgery, stroke, meningitis/encephalitis. # Scores Level of Consciousness 1a: [0] = Alert; keenly responsive LOC Questions 1b: [0] = Answers both questions correctly LOC Commands 1c: [0] = Performs both tasks correctly Best Gaze 2: [0] = Normal Visual 3: [0] = No visual loss Facial Palsy 4: [0] = Normal symmetrical movements Motor Arm Left 5a: [0] = No drift Motor Arm Right 5b: [0] = No drift Motor Leg Left 6a: [0] = No drift Motor Leg Right 6b: [0] = No drift Limb Ataxia 7: [0] = Absent Sensory 8: [0] = Normal Best Language 9: [0] = No aphasia Dysarthria 10: [0] = Normal Extinction and Inattention 11: [0] = No abnormality NIHSS Total: 0 # Assessment Impression: - Seizure Differential includes seizure vs syncope; overall clinical features suggestive of seizures- recommend starting AEDs. Brain MRI is normal. # Plan Labs: - comprehensive metabolic panel - ESR - CBC - ua - urine drug screen Diagnostic Test: - EEG Medication: - levetiracetam (Keppra) 500 mg twice daily Other: - If patient has any neurological deterioration please call me back immediately - seizure precautions - I have discussed my recommendations with the referring provider - neurology referral as outpatient Additional Recommendations: -No driving till cleared by neurology as outpatient # Logistics Attestation of consult completion: The patient is located at: [facility]. Facility staff participated in the visit. I performed this telemedicine visit from my offsite office utilizing interactive 2 way audio and visual telecommunication technology. Total time spent in telemedicine encounter: I spent 10 minutes reviewing clinical data and/or imaging, obtaining history, examining the patient, communicating with the onsite care team, and in preparation of this report. # Demographics First Name: Jaleel Last Name: [place] Facility: [facility] Yes ZOHRA MAYA MD April 07, 2025 23:09
[2025-04-08] VITALS (9 sets, daily range): BP systolic 0–138; BP diastolic 63–86; PULSE 61–95; RESP 12–18; TEMP 97.7–98.1; O2SAT 94–98
--- NOTE | 2025-04-08 04:07 | DVHINCON2 ---
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 He states that he ate a granola bar and he feels a log of sugar in his mouth and then he was telling his agriculture intern that he is not feeling well, feeling full and then he passed out. PAST MEDICAL HISTORY: He has a history of previous total of 5 times syncopal episodes before that. He passed out about 6 months ago after he was feeding his dog. Before that, he passed out when he had a lot of pain in his lumbosacral region. Prior to that, he passed out when he informed me that he was drinking quite a bit of alcohol and it happened for few times. He went to [facility] and they have done a complete neurologic workup, which is negative. He does not have any chest pain. No heart failure. No history of lung, liver or kidney problem. Alcohol among currently is mild to moderate. No drugs. PAST SURGICAL HISTORY: Unknown. PHYSICAL EXAMINATION: GENERAL: Awake, alert, and oriented. LUNGS: Clear. HEART: Sounds regular. ABDOMEN: Soft. VASCULAR: Normal. LABORATORY AND DIAGNOSTIC DATA: EKG normal sinus rhythm. No acute changes. Orthostatic vital signs are all negative. Potassium 4.0. Urine is negative. WBC 5.3. The medicine currently getting Rocephin, [place], Tylenol, morphine. DIAGNOSIS: This patient has underlying syncopal episode, a total of 6 times happened so far. Exact etiology is still unknown. I do not see any acute cardiac problem at this time. interpreted by Dr. Chu. Echo revealed there was a mild aortic root enlargement, right ventricular enlargement, and ejection fraction of 60%. Right renal function is normal. PLAN: EKG revealed normal sinus rhythm. There is a left axis deviation. I do not see any acute changes adenosine Cardiolite test. I explained to him about the need of the loop recorder to come to final diagnosis. I also conveyed message to Dr. Chu for second opinion. I discussed with Dr. Blount, discussion done with his daughter also. His daughter is a nurse over here. He has shared my cell phone number and advised to see me also back in the office so I can follow his case and pay some personal attention to resolve the problem. Arturo Holman MD MP/TYRA/ROBYN TID: [id number] RECEIPT: [id number] MTDD
[2025-04-08] MEDS: REGADENOSON 0.4 MG/5 ML SYRG IV ONE ×2 (09:12→09:15)
--- NOTE | 2025-04-08 10:59 | DVHPN2 ---
Subjective No complaints He was seen by Neurology last night and was recommended to be started on Keppra for possible seizures EEG was ordered Stress test was done this morning, it is pending Changes from previous H/P or p: Changes Objective Vitals Vital Signs Date Time Temp Pulse Resp B/P (MAP) Pulse Ox O2 Delivery O2 Flow Rate FiO2 04/08/25 08:32 97.8 65 18 112/72 (85) 94 97.8 0/ 04/07/25 20:00 Room Air* 0 21 Intake/Output Intake and Output 04/08/25 06:59 Intake Total 2460 ml Balance 2460 ml Intake Oral 2460 ml # Voids 11 # Bowel Movements 1 General Appearance: Alert, Oriented X3, Cooperative, No acute distress Lungs: Clear to auscultation, Normal air movement Cardiovascular: Regular rate, Normal S1, Normal S2, No murmurs Abdomen: Normal bowel sounds, Soft, No tenderness Extremities: No edema Medications Current Medications Medications Dose Ordered Sig/Hamzah Route Start Time Stop Time Status Last Admin Dose Admin Acetaminophen/ Hydrocodone Bitart 1 tab Q4HP PRN PO 04/05/25 15:45 Ondansetron HCl 4 mg Q4HP PRN IV 04/05/25 15:45 Acetaminophen 650 mg Q6HP PRN PO 04/05/25 15:45 Morphine Sulfate 2 mg Q4HPRN PRN IV 04/05/25 15:45 Nitroglycerin 0.4 mg Q5MINP PRN SL 04/05/25 15:45 Morphine Sulfate 2 mg Q30M PRN IV 04/05/25 15:45 Ceftriaxone Sodium 50 ml @ 100 mls/hr DAILY@09 IV 04/05/25 16:00 04/07/25 11:57 100 MLS/HR Laboratory Results Laboratory Tests 04/06/25 04:33 04/07/25 04:30 Urinalysis Test 04/05/25 16:21 Urine Color Light-yellow (Yellow) Urine Clarity Clear (Clear) Urine pH 7.0 (5.0-9.0) Urine Specific [place] 1.009 (1.001-1.035) Urine Protein Negative (Negative) Urine Ketones Negative (Negative) Urine Blood Negative /uL (Negative) Urine Nitrite Negative (Negative) Urine Bilirubin Negative (Negative) Urine Urobilinogen Normal mg/dL (Negative) Urine Leukocyte Esterase Negative /uL (Negative) Urine RBC 1 /hpf (0 - 3) Urine Microscopic WBC < 1 /HPF (0-3) Urine Squamous Epithelial Cells None seen /hpf (<5) Urine Bacteria None seen /hpf (None Seen) Urine Glucose Normal mg/dL (Normal) Microbiology Microbiology Date/Time Source Procedure Growth Status 04/05/25 16:10 Blood Blood Culture - Preliminary NO GROWTH AFTER 48 HOURS OF INCUBATION. 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 Rule out heart failure Rule out coronary artery disease Plan: Echocardiogram is pending Orthopedic consultation Cardiac consultation Check the orthostatic vital signs Neurology consult Check B12 and folic acid and TSH Repeat a kidney function in the morning IV fluids was given, creatinine has improved Pain control with [place] as needed Observe on telemetry Discussed with the family at the bedside Full code The rest of the management will depend on the hospital course Workup: Chest x-ray vascular congestion bilaterally with a perihilar airspace opacities Head CT negative Right knee suprapatellar effusion and moderate tricompartmental degenerative joint disease Brain MRI and MRA is negative Carotid Doppler is negative MRI of the right knee shows tricompartmental osteoarthritis with a marginal ostial 5 ptosis medial meniscal tear and a large suprapatellar joint effusion and a large leaking Reed's cyst Labs showed normal CBC ESR 6 Troponins are negative UA is negative Creatinine is high at 1.3 corrected to 1.1 today Cholesterol panel normal with the LDL of 100 04/07/2025: Workup so far has been negative Heart rate is running between 60-65 Cardiology saw the patient recommended a stress test which will be done tomorrow Continue the current management pending the stress test 04/08/2025: Stress test: Result is pending Start Keppra 500 mg twice a day EEG We will discuss with Cardiology regarding the next step whether the patient needs a loop recorder done here before discharge or outpatient Plan discussed with: Patient My Orders Orders - DOMENICO SERRANO MD Procedure Category Date Status Time Levetiracetam Tablet PHA 04/08/25 Transmitted (Keppra Tablet) 11:00 Levetiracetam Tablet PHA 04/08/25 Transmitted (Keppra Tablet) 22:00 Date of Service: April 08, 2025 Billing Provider: DOMENICO SERRANO MD Common Visit Codes: [id number] INP/OBS CARE(HIGH) DOMENICO SERRANO MD April 08, 2025 10:58
[2025-04-08] MEDS: levETIRAcetam 500 MG TAB PO ONE (11:00)
[2025-04-08 11:20] LABS: Folate (Folic Acid) 23.41 ng/mL (>5.38)
--- NOTE | 2025-04-08 11:30 | DVHSR ---
APPROVED REPORT Exam: Nuclear Stress Test BMI: 0 Stress Test Details HR Max Heart Rate (APMHR): 166.628535 bpm Target HR (85% APMHR): 141.593088 bpm BP ECG Stress ECG Conclusion lvef 52% no severe ischemia noted mild GI artifact noted inferiorly NM EXAM: Myocardial Perfusion REST/STRESS Imaging Protocol: Rest Tc-99m/Stress Tc-99m 1 day Resting Data Rest SPECT myocardial perfusion imaging was performed in supine position 45 minutes following the int ravenous injection of 9.0 mCi of Tc-99m Sestamibi. Time of rest injection: 08:00 Date: 04/08/2025 Time of rest imagin:45 Date: 04/08/2025 Administration Route: IV Administration Site: Right Arm Pharmacologic Stress Pharmacologic stress test was performed by injecting Regadenoson 0.4 mg IV push followed by the intra venous injection of 34.7 mCi of Tc-99m Sestamibi. Time of stress injection: 09:15 Date: 04/08/2025 Time of stress imagin:00 Date: 04/08/2025 Administration Route: IV Administration Site: Right Arm Gated Stress SPECT was performed 45 minutes after stress injection. The images were gated to evaluate regional wall motion and calculate left ventricular ejection fracti on. Stress only was performed in the Supine position. Nuclear Conclusion Nuclear Findings: negative for ischemia lvef 52% no severe ischemia noted mild GI artifact noted inferiorly
[2025-04-08] MEDS: levETIRAcetam 500 MG TAB PO SCH (21:02)
--- NOTE | 2025-04-08 22:38 | DVHPN2 ---
Progress Note - Dictate Date Seen: April 08, 2025 Medical Necessity Reason Pt with a Central, PICC or Fol: No Subjective Patient was seen and evaluated in follow up. Nuclear Stress Test shows an EF of 52%, no ischemia noted. TSH is WNL. I explained to him about the need of the loop recorder to come to final diagnosis. I also conveyed message to Dr. Chu for second opinion. I discussed with Dr. Blount, discussion done with his daughter also. He is advised to see me also back in the office so I can follow his case and pay personal attention to resolve the problem. Telemetry reviewed. vital signs Vital Sign Date Time Temp Pulse Resp B/P (MAP) Pulse Ox O2 Delivery O2 Flow Rate FiO2 04/08/25 21:16 131/86 (101) 04/08/25 20:45 97.8 61 12 98 97.8 04/08/25 08:00 Room Air* 0 21 Total Intake and Output 04/07/25 04/07/25 04/08/25 15:00 23:00 07:00 Intake Total 1860 ml 600 ml Balance 1860 ml 600 ml medications Current Medications Medications Dose Ordered Sig/Hamzah Route Start Time Stop Time Status Last Admin Dose Admin Acetaminophen/ Hydrocodone Bitart 1 tab Q4HP PRN PO 04/05/25 15:45 Ondansetron HCl 4 mg Q4HP PRN IV 04/05/25 15:45 Acetaminophen 650 mg Q6HP PRN PO 04/05/25 15:45 Morphine Sulfate 2 mg Q4HPRN PRN IV 04/05/25 15:45 Nitroglycerin 0.4 mg Q5MINP PRN SL 04/05/25 15:45 Morphine Sulfate 2 mg Q30M PRN IV 04/05/25 15:45 Ceftriaxone Sodium 50 ml @ 100 mls/hr DAILY@09 IV 04/05/25 16:00 04/07/25 11:57 100 MLS/HR Levetiracetam 500 mg BID PO 04/08/25 22:00 04/08/25 21:02 500 MG objective GENERAL: Alert and oriented x 3. No acute distress. EYES: PERRL, EOMI. Anicteric. HENT: Moist mucous membranes. LUNGS: Clear to auscultation bilaterally. CARDIOVASCULAR: Regular rate and rhythm. ABDOMEN: Soft, nontender and nondistended. EXTREMITIES: No edema. NEUROLOGIC: No focal neurological deficits. SKIN: Warm, dry. laboratory and microbiology Laboratory Tests 04/07/25 04:30 04/06/25 04:33 Test 04/07/25 04:30 Range/Units Serum Glucose 99 74-106 mg/dL Problem List Syncope, recurrent. Acute kidney injury most likely due to vasomotor nephropathy. Bradycardia. Hypotension. 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 Assessment/Plan Continued all current supportive medical care. Morphine and [place] for pain management. IV antibiotics as ordered. Nitro SL. Additional plan as per the hospital course. Dietary Evaluation Review Comments: Follow current diet, monitor intake to meet 75% of his needs Expected Outcomes/Goals: gradual wt loss Plan discussed with: Patient TONY DILLON MD April 08, 2025 22:38
[2025-04-09] VITALS (7 sets, daily range): BP systolic 102–115; BP diastolic 67–89; PULSE 60–94; RESP 17–20; TEMP 97.4–97.9; O2SAT 92–96
--- NOTE | 2025-04-09 11:40 | DVHPN2 ---
Subjective Doing well No new complaints The stress test was negative He is scheduled for loop recorder implant tomorrow morning Changes from previous H/P or p: Changes Objective Vitals Vital Signs Date Time Temp Pulse Resp B/P (MAP) Pulse Ox O2 Delivery O2 Flow Rate FiO2 04/09/25 08:41 97.6 65 18 110/70 (83) 92 97.6 115/89 (98) 109/89 (96) 04/09/25 08:00 Room Air* 0 21 Intake/Output Intake and Output 04/09/25 07:00 Intake Total 2740 ml Output Total 3 ml Balance 2737 ml Intake Oral 2740 ml Output Urine Total 3 ml # Voids 2 # Bowel Movements 1 General Appearance: Alert, Oriented X3, Cooperative, No acute distress Lungs: Clear to auscultation, Normal air movement Cardiovascular: Regular rate, Normal S1, Normal S2, No murmurs Abdomen: Normal bowel sounds, Soft, No tenderness Extremities: No edema Medications Current Medications Medications Dose Ordered Sig/Hamzah Route Start Time Stop Time Status Last Admin Dose Admin Acetaminophen/ Hydrocodone Bitart 1 tab Q4HP PRN PO 04/05/25 15:45 Ondansetron HCl 4 mg Q4HP PRN IV 04/05/25 15:45 Acetaminophen 650 mg Q6HP PRN PO 04/05/25 15:45 Morphine Sulfate 2 mg Q4HPRN PRN IV 04/05/25 15:45 Nitroglycerin 0.4 mg Q5MINP PRN SL 04/05/25 15:45 Morphine Sulfate 2 mg Q30M PRN IV 04/05/25 15:45 Ceftriaxone Sodium 50 ml @ 100 mls/hr DAILY@09 IV 04/05/25 16:00 04/09/25 09:39 100 MLS/HR Levetiracetam 500 mg BID PO 04/08/25 22:00 04/09/25 09:39 500 MG Laboratory Results Laboratory Tests 04/06/25 04:33 04/07/25 04:30 Urinalysis Test 04/05/25 16:21 Urine Color Light-yellow (Yellow) Urine Clarity Clear (Clear) Urine pH 7.0 (5.0-9.0) Urine Specific [place] 1.009 (1.001-1.035) Urine Protein Negative (Negative) Urine Ketones Negative (Negative) Urine Blood Negative /uL (Negative) Urine Nitrite Negative (Negative) Urine Bilirubin Negative (Negative) Urine Urobilinogen Normal mg/dL (Negative) Urine Leukocyte Esterase Negative /uL (Negative) Urine RBC 1 /hpf (0 - 3) Urine Microscopic WBC < 1 /HPF (0-3) Urine Squamous Epithelial Cells None seen /hpf (<5) Urine Bacteria None seen /hpf (None Seen) Urine Glucose Normal mg/dL (Normal) Microbiology Microbiology Date/Time Source Procedure Growth Status 04/05/25 16:10 Blood Blood Culture - Preliminary NO GROWTH AFTER 72 HOURS OF INCUBATION. 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 Rule out heart failure Rule out coronary artery disease Plan: Echocardiogram is pending Orthopedic consultation Cardiac consultation Check the orthostatic vital signs Neurology consult Check B12 and folic acid and TSH Repeat a kidney function in the morning IV fluids was given, creatinine has improved Pain control with [place] as needed Observe on telemetry Discussed with the family at the bedside Full code The rest of the management will depend on the hospital course Workup: Chest x-ray vascular congestion bilaterally with a perihilar airspace opacities Head CT negative Right knee suprapatellar effusion and moderate tricompartmental degenerative joint disease Brain MRI and MRA is negative Carotid Doppler is negative MRI of the right knee shows tricompartmental osteoarthritis with a marginal ostial 5 ptosis medial meniscal tear and a large suprapatellar joint effusion and a large leaking Reed's cyst Labs showed normal CBC ESR 6 Troponins are negative UA is negative Creatinine is high at 1.3 corrected to 1.1 today Cholesterol panel normal with the LDL of 100 04/07/2025: Workup so far has been negative Heart rate is running between 60-65 Cardiology saw the patient recommended a stress test which will be done tomorrow Continue the current management pending the stress test 04/08/2025: Stress test: Result is pending Start Keppra 500 mg twice a day EEG We will discuss with Cardiology regarding the next step whether the patient needs a loop recorder done here before discharge or outpatient 04/09/2025: Stress test is negative Continue Keppra 500 mg twice a day EEG is pending A.m. cortisol level was normal TSH folic acid and B12 levels are all normal Scheduled for a loop recorder by Dr. Holman in the morning Plan discussed with: Patient Date of Service: April 09, 2025 Billing Provider: DOMENICO SERRANO MD Common Visit Codes: [id number] INP/OBS CARE(MOD) DOMENICO SERRANO MD April 09, 2025 11:40
--- NOTE | 2025-04-09 17:33 | MEDREC ---
[facility] Intervention Section I [facility] Intervention: Review courses of therapy (PLEASE CONSIDER D/C ANTIBIOTIC IN ABSENCE OF BACTERIAL INFECTION) ASAEL ROGEL PHARMACIST April 09, 2025 17:33
--- NOTE | 2025-04-09 19:50 | DVHPN2 ---
Progress Note - Dictate Date Seen: April 09, 2025 Medical Necessity Reason Pt with a Central, PICC or Fol: No Subjective Patient was seen and evaluated in follow up. No overnight events. Patient is resting in bed. Patient is scheduled for loop recorder implant tomorrow morning. Risks and benefits discussed with the patient. EEG is pending. A.m. cortisol level, TSH, folic acid and B12 levels are all normal. Telemetry reviewed. vital signs Vital Sign Date Time Temp Pulse Resp B/P (MAP) Pulse Ox O2 Delivery O2 Flow Rate FiO2 04/09/25 16:33 97.4 76 18 106/73 (84) 96 97.4 04/09/25 08:00 Room Air* 0 21 Total Intake and Output 04/08/25 04/08/25 04/09/25 15:00 23:00 07:00 Intake Total 1140 ml 1600 ml Output Total 3 ml Balance 1140 ml 1597 ml medications Current Medications Medications Dose Ordered Sig/Hamzah Route Start Time Stop Time Status Last Admin Dose Admin Acetaminophen/ Hydrocodone Bitart 1 tab Q4HP PRN PO 04/05/25 15:45 Ondansetron HCl 4 mg Q4HP PRN IV 04/05/25 15:45 Acetaminophen 650 mg Q6HP PRN PO 04/05/25 15:45 Morphine Sulfate 2 mg Q4HPRN PRN IV 04/05/25 15:45 Nitroglycerin 0.4 mg Q5MINP PRN SL 04/05/25 15:45 Morphine Sulfate 2 mg Q30M PRN IV 04/05/25 15:45 Ceftriaxone Sodium 50 ml @ 100 mls/hr DAILY@09 IV 04/05/25 16:00 04/09/25 09:39 100 MLS/HR Levetiracetam 500 mg BID PO 04/08/25 22:00 04/09/25 09:39 500 MG objective GENERAL: Alert and oriented x 3. No acute distress. EYES: PERRL, EOMI. Anicteric. HENT: Moist mucous membranes. LUNGS: Clear to auscultation bilaterally. CARDIOVASCULAR: Regular rate and rhythm. ABDOMEN: Soft, nontender and nondistended. EXTREMITIES: No edema. NEUROLOGIC: No focal neurological deficits. SKIN: Warm, dry. laboratory and microbiology Laboratory Tests 04/07/25 04:30 04/06/25 04:33 Test 04/07/25 04:30 Range/Units Serum Glucose 99 74-106 mg/dL Problem List Syncope, recurrent. Acute kidney injury most likely due to vasomotor nephropathy. Bradycardia. Hypotension. 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 Assessment/Plan Continued all current supportive medical care. Loop recorder implant. Morphine and [place] for pain management. IV antibiotics as ordered. Nitro SL. Additional plan as per the hospital course. Dietary Evaluation Review Comments: Follow current diet, monitor intake to meet 75% of his needs Expected Outcomes/Goals: gradual wt loss Plan discussed with: Patient TONY DILLON MD April 09, 2025 19:50
[2025-04-10 01:00] VITALS: BP 113/78; PULSE 81; RESP 17; TEMP 97.8; O2SAT 94
[2025-04-10 06:32] LABS: Urine Bacteria None Seen /hpf (None Seen)
[2025-04-10 06:36] VITALS: BP 113/65; PULSE 67; RESP 17; TEMP 97.5; O2SAT 99
[2025-04-10 06:53] LABS: INR 1.02 (0.9-1.15); Partial Thromboplastin Time 27.8 SEC (24.5-34.5); Prothrombin Time 10.8 sec (9.3-11.8)
[2025-04-10 07:32] LABS: Urine Blood Negative /uL (Negative); Urine Clarity Clear (Clear); Urine Color Light-Yellow (Yellow); Urine Protein, UAD Negative (Negative); Urine Specific Gravity 1.009 (1.001-1.035); Urine Squamous Epithelial Cell None Seen /hpf (<5); Urine Urobilinogen Normal (Negative); Urine pH 5.5 (5.0-9.0)
[2025-04-10 07:34] LABS: Urine WBC < 1 /HPF (0-3)
[2025-04-10] MEDS: MIDAZOLAM HCL 2MG/2ML 2ml VIAL (1mg/ml) ONE (09:09)
[2025-04-10] MEDS: LIDOCAINE 2%HCL (LOCAL ANESTH.) INJ 20ML MDV ONE ×2 (09:09→09:26)
[2025-04-10] MEDS: fentaNYL CITRATE 100 MCG/2 ML VL ONE (09:09)
[2025-04-10 09:46] VITALS: BP 96/67; PULSE 81; RESP 15; TEMP 98.1; O2SAT 95
[2025-04-10 10:02] VITALS: BP 91/67; PULSE 62; RESP 16; O2SAT 94
[2025-04-10 10:15] VITALS: BP 98/69; PULSE 68; RESP 16; O2SAT 97
[2025-04-10 10:33] VITALS: BP 97/62; PULSE 60; RESP 16; O2SAT 96
[2025-04-10] MEDS ORDERED: KEP500T PO (11:20)
--- NOTE | 2025-04-10 11:22 | DVHINCON2 ---
Date of service: April 09, 2025 Reason for Consultation syncope History of Present Illness 54yo M w/ hx of chronic EtOH use disorder who presented to the hospital with recurrent syncope. Patient states over the past 10 years he has been experienced recurrent episodes of syncope. He describes a prodrome of uneasy feeling in his abdomen which migrates diffusely. He likens it to eating a high carbohydrate load. He states the triggers in the past for this episode have been high EtOH intake, stress, extreme pain. He states the most recent episode however there was no evident trigger. During the episode he experiences this prodrome followed by loss of consciousness. He does not particularly remember the event in its entirety. On one instance patient describes losing bladder control. He has not bitten his tongue in the past. Denies any overt shaking/convulsive episodes to his recollection. Denies any hx of overt hypoglycemia. Does not monitor his BG at home however no hypoglycemic on file throughout previous encounters. Past Medical History Problems Medical Problems: (1) Right knee pain Status: Acute (2) Syncope and collapse Status: Acute Past Surgical History Past Surgical History Medical Problems: (1) Right knee pain Status: Acute (2) Syncope and collapse Status: Acute Family History: Diabetes mellitus G8 MOTHER FH: scoliosis G8 MOTHER Hypercholesterolemia G8 MOTHER Hypertension G8 MOTHER Allergies: Coded Allergies: Sulfa Antibiotics (Unverified Allergy, Mild, 04/06/25) "Sensitivity, itchy after a few days." Home Meds Active Scripts Levetiracetam (KEPPRA TABLET) 500 Mg Tb, 500 MG PO BID for 30 Days, #60 TAB 5 Refills Prov:DOMENICO SERRANO MD 04/10/25 Review of Systems Negative except stated in HPI Vital Signs Vital Signs Date Time Temp Pulse Resp B/P (MAP) Pulse Ox O2 Delivery O2 Flow Rate FiO2 04/10/25 10:33 60 16 97/62 (74) 96 04/10/25 09:46 98.1 98.1 04/10/25 08:00 Room Air* 0 21 Physical Exam Gen - no acute distress HEENT - no thyromegaly CV - RRR, no m/r/g Resp - CTAB Ext - no edema Skin - no rashes Neuro - CN grossly intact Labs/Diagnostic Data Labs Test 04/10/25 06:20 04/10/25 06:10 04/09/25 08:35 04/07/25 04:30 Range/Units Urine Color Light-yellow Yellow Urine Clarity Clear Clear Urine pH 5.5 5.0-9.0 Urine Specific [place] 1.009 1.001-1.035 Urine Protein Negative Negative Urine Ketones Negative Negative Urine Blood Negative Negative /uL Urine Nitrite Negative Negative Urine Bilirubin Negative Negative Urine Urobilinogen Normal Negative mg/dL Urine Leukocyte Esterase Negative Negative /uL Urine RBC None seen 0 - 3 /hpf Urine Microscopic WBC < 1 0-3 /HPF Urine Squamous Epithelial Cells None seen <5 /hpf Urine Bacteria None seen None Seen /hpf Urine Glucose Normal Normal mg/dL Prothrombin Time 10.8 9.3-11.8 sec Prothrombin Time INR 1.02 0.9-1.15 Activated Partial Thromboplast Time 27.8 24.5-34.5 SEC Cortisol AM Sample 18.50 5.27-22.45 ug/dL Sodium Level 142 136-145 mmol/L Potassium Level 3.9 3.5-5.1 mmol/L Chloride Level 108 H 98-107 mmol/L Carbon Dioxide Level 26 20-31 mmol/L Anion Gap 8 5-15 Blood Urea Nitrogen 17 9-23 mg/dL Creatinine 1.01 0.700-1.30 mg/dL Glomerular Filtration Rate Calc 88 >90 mL/min BUN/Creatinine Ratio 16.8 10.0-20.0 Serum Glucose 99 74-106 mg/dL Calcium Level 9.7 8.7-10.4 mg/dL Magnesium Level 1.9 1.6-2.6 mg/dL Total Bilirubin 0.5 0.2-1.0 mg/dL Aspartate Amino Transferase (AST) 13 13-40 U/L Alanine Aminotransferase (ALT) 17 7-40 U/L Alkaline Phosphatase 37 L 46-116 U/L Total Protein 6.4 5.7-8.2 g/dL Albumin 4.3 3.2-4.8 g/dL Vitamin B12 Level 257 211-911 pg/mL Folic Acid 23.41 >5.38 ng/mL Thyroid Stimulating Hormone (TSH) 1.47 0.55-4.78 uIU/mL Test 04/06/25 04:33 04/05/25 16:00 04/05/25 11:35 04/05/25 10:48 Range/Units White Blood Count 5.3 4.4-10.8 10^3/uL Red Blood Count 4.28 L 4.5-5.90 10^6/uL Hemoglobin 13.0 L 13.5-17.5 g/dL Hematocrit 38.4 L 41.0-53.0 % Mean Corpuscular Volume 89.8 80.0-100.0 fL Mean Corpuscular Hemoglobin 30.3 28.0-32.0 pg Mean Corpuscular Hemoglobin Concent 33.7 32.0-36.0 g/dL Red Cell Distribution Width 13.6 11.8-14.3 % Platelet Count 168 140-450 10^3/uL Mean Platelet Volume 9.9 6.9-10.8 fL Neutrophils (%) (Auto) 52.3 37.0-80.0 % Lymphocytes (%) (Auto) 22.5 10.0-50.0 % Monocytes (%) (Auto) 9.7 0.0-12.0 % Eosinophils (%) (Auto) 14.9 H 0.0-7.0 % Basophils (%) (Auto) 0.6 0.0-2.0 % Neutrophils # (Auto) 2.8 1.6-8.6 10 ^3/uL Lymphocytes # (Auto) 1.2 0.4-5.4 10 ^3/uL Monocytes # (Auto) 0.5 0-1.3 10 ^3/uL Eosinophils # (Auto) 0.8 0-0.8 10 ^3/uL Basophils # (Auto) 0 0-0.2 10 ^3/uL Nucleated Red Blood Cells 0.0 % Lactic Acid Level 0.7 0.4-2.0 mmol/L Troponin I High Sensitivity < 3 L </=54 ng/L Erythrocyte Sedimentation Rate 6 0-20 mm/hr Hemoglobin A1c 5.2 <5.7 % A1C Uric Acid 6.4 3.7-9.2 mg/dL C-Reactive Protein High Sensitivity 0.09 <1.0 mg/dL Triglycerides Level 117 < 150 mg/dL Cholesterol Level 167 < 200 mg/dL LDL Cholesterol 100 H < 100 mg/dL HDL Cholesterol 54 40-59 mg/dL Microbiology Date/Time Source Procedure Growth Status 04/05/25 16:10 Blood Blood Culture - Preliminary NO GROWTH AFTER 72 HOURS OF INCUBATION. Resulted Assessment # Recurrent syncope # Chronic EtOH use disorder Longstanding hx of recurrent syncope with prodrome of vague GI distress followed by loss of consciousness and one episode of bladder incontinence with triggers involving heavy EtOH use, severe pain, and stress. Such constellation of clinical hx suggests mostly likely epileptic in nature. No prior hx of overt hypoglycemia nor on any medications which would induce such. No orthostatic hypotension or other signs of autonomic dysfunction. AM cortisol and TFTs wnl. - Should BG < 55mg/dL recommend immediate lab draw with BMP, c-peptide, BHB, insulin, insulin Ab - Recommend discharge home with glucometer and measure BG if having such prodrome in future Plan discussed with: Patient SWETHA LUGO MD April 10, 2025 11:22
[2025-04-10] MEDS ORDERED: BLOO1KIT60 XX (11:33)
--- NOTE | 2025-04-10 14:20 | DVHEEG2 ---
Neurology EEG Procedural Note Procedural Note Date of service: March Diagnosis: Suspected seizure. Patient status: Awake. Conditions of recording: This is an 18 channel EEG recording with electrode p lacement following guidelines as per the 10/20 international classification. Photic stimulation was performed as activating procedure. Technical summary: The predominant background activity in this recording appeared to be well-modulated alpha in the 9-11 Hz range, which appeared to be bilaterally synchronous and symmetrical. No definite epileptiform discharges or electrographic seizures were seen. Photic stimulation did not provide any further abnormalities. Impression: This appears to be an unremarkable EEG recording. Note should be made that a single normal interictal EEG recording devoid of epileptiform discharges or electrographic seizures does not necessarily exclude the diagnosis of an ongoing epileptic seizure disorder. Clinical correlation is imperative. AMINAH JIMENEZ MD April 10, 2025 14:20
--- NOTE | 2025-04-10 19:12 | DVHPN2 ---
Progress Note - Dictate Date Seen: April 10, 2025 Medical Necessity Reason Pt with a Central, PICC or Fol: No Subjective Patient was seen and evaluated in follow up. Patient underwent successful loop recorder implantation and tolerated the procedure well. Patient is cardiac stable for discharge. Advised for outpatient follow up in my office. Telemetry reviewed. vital signs Vital Sign Date Time Temp Pulse Resp B/P (MAP) Pulse Ox O2 Delivery O2 Flow Rate FiO2 04/10/25 10:33 60 16 97/62 (74) 96 04/10/25 09:46 98.1 98.1 04/10/25 08:00 Room Air* 0 21 Total Intake and Output 04/09/25 04/09/25 04/10/25 15:00 23:00 07:00 Intake Total 50 ml 1400 ml 1300 ml Output Total 7 ml 6 ml Balance 50 ml 1393 ml 1294 ml medications Current Medications Medications Dose Ordered Sig/Hamzah Route Start Time Stop Time Status Last Admin Dose Admin Acetaminophen/ Hydrocodone Bitart 1 tab Q4HP PRN PO 04/05/25 15:45 Ondansetron HCl 4 mg Q4HP PRN IV 04/05/25 15:45 Acetaminophen 650 mg Q6HP PRN PO 04/05/25 15:45 Morphine Sulfate 2 mg Q4HPRN PRN IV 04/05/25 15:45 Nitroglycerin 0.4 mg Q5MINP PRN SL 04/05/25 15:45 Morphine Sulfate 2 mg Q30M PRN IV 04/05/25 15:45 Ceftriaxone Sodium 50 ml @ 100 mls/hr DAILY@09 IV 04/05/25 16:00 04/09/25 09:39 100 MLS/HR Levetiracetam 500 mg BID PO 04/08/25 22:00 04/10/25 10:00 500 MG objective GENERAL: Alert and oriented x 3. No acute distress. EYES: PERRL, EOMI. Anicteric. HENT: Moist mucous membranes. LUNGS: Clear to auscultation bilaterally. CARDIOVASCULAR: Regular rate and rhythm. ABDOMEN: Soft, nontender and nondistended. EXTREMITIES: No edema. NEUROLOGIC: No focal neurological deficits. SKIN: Warm, dry. laboratory and microbiology Laboratory Tests 04/07/25 04:30 04/06/25 04:33 Test 04/07/25 04:30 Range/Units Serum Glucose 99 74-106 mg/dL Problem List Syncope, recurrent. Acute kidney injury most likely due to vasomotor nephropathy. Bradycardia. Hypotension. 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 Assessment/Plan Continued all current supportive medical care. Loop recorder implant. Morphine and [place] for pain management. IV antibiotics as ordered. Nitro SL. Additional plan as per the hospital course. Dietary Evaluation Review Comments: Follow current diet, monitor intake to meet 75% of his needs Expected Outcomes/Goals: gradual wt loss Plan discussed with: Patient TONY DILLON MD April 10, 2025 12:51
--- NOTE | 2025-04-10 22:06 | DVHDS2 ---
Discharge Summary Date of Admission April 05, 2025 at 15:32 Date of Discharge: April 10, 2025 Labs/Diagnostic Data: Laboratory Results Test 04/10/25 06:20 04/10/25 06:10 04/09/25 08:35 04/07/25 04:30 Urine Color Light-yellow (Yellow) Urine Clarity Clear (Clear) Urine pH 5.5 (5.0-9.0) Urine Specific [place] 1.009 (1.001-1.035) Urine Protein Negative (Negative) Urine Ketones Negative (Negative) Urine Blood Negative /uL (Negative) Urine Nitrite Negative (Negative) Urine Bilirubin Negative (Negative) Urine Urobilinogen Normal mg/dL (Negative) Urine Leukocyte Esterase Negative /uL (Negative) Urine RBC None seen /hpf (0 - 3) Urine Microscopic WBC < 1 /HPF (0-3) Urine Squamous Epithelial Cells None seen /hpf (<5) Urine Bacteria None seen /hpf (None Seen) Urine Glucose Normal mg/dL (Normal) Prothrombin Time 10.8 sec (9.3-11.8) Prothrombin Time INR 1.02 (0.9-1.15) Activated Partial Thromboplast Time 27.8 SEC (24.5-34.5) Cortisol AM Sample 18.50 ug/dL (5.27-22.45) Sodium Level 142 mmol/L (136-145) Potassium Level 3.9 mmol/L (3.5-5.1) Chloride Level 108 mmol/L (98-107) Carbon Dioxide Level 26 mmol/L (20-31) Anion Gap 8 (5-15) Blood Urea Nitrogen 17 mg/dL (9-23) Creatinine 1.01 mg/dL (0.700-1.30) Glomerular Filtration Rate Calc 88 mL/min (>90) BUN/Creatinine Ratio 16.8 (10.0-20.0) Serum Glucose 99 mg/dL (74-106) Calcium Level 9.7 mg/dL (8.7-10.4) Magnesium Level 1.9 mg/dL (1.6-2.6) Total Bilirubin 0.5 mg/dL (0.2-1.0) Aspartate Amino Transferase (AST) 13 U/L (13-40) Alanine Aminotransferase (ALT) 17 U/L (7-40) Alkaline Phosphatase 37 U/L (46-116) Total Protein 6.4 g/dL (5.7-8.2) Albumin 4.3 g/dL (3.2-4.8) Vitamin B12 Level 257 pg/mL (211-911) Folic Acid 23.41 ng/mL (>5.38) Thyroid Stimulating Hormone (TSH) 1.47 uIU/mL (0.55-4.78) Test 04/06/25 04:33 04/05/25 16:00 04/05/25 11:35 04/05/25 10:48 White Blood Count 5.3 10^3/uL (4.4-10.8) Red Blood Count 4.28 10^6/uL (4.5-5.90) Hemoglobin 13.0 g/dL (13.5-17.5) Hematocrit 38.4 % (41.0-53.0) Mean Corpuscular Volume 89.8 fL (80.0-100.0) Mean Corpuscular Hemoglobin 30.3 pg (28.0-32.0) Mean Corpuscular Hemoglobin Concent 33.7 g/dL (32.0-36.0) Red Cell Distribution Width 13.6 % (11.8-14.3) Platelet Count 168 10^3/uL (140-450) Mean Platelet Volume 9.9 fL (6.9-10.8) Neutrophils (%) (Auto) 52.3 % (37.0-80.0) Lymphocytes (%) (Auto) 22.5 % (10.0-50.0) Monocytes (%) (Auto) 9.7 % (0.0-12.0) Eosinophils (%) (Auto) 14.9 % (0.0-7.0) Basophils (%) (Auto) 0.6 % (0.0-2.0) Neutrophils # (Auto) 2.8 10 ^3/uL (1.6-8.6) Lymphocytes # (Auto) 1.2 10 ^3/uL (0.4-5.4) Monocytes # (Auto) 0.5 10 ^3/uL (0-1.3) Eosinophils # (Auto) 0.8 10 ^3/uL (0-0.8) Basophils # (Auto) 0 10 ^3/uL (0-0.2) Nucleated Red Blood Cells 0.0 % Lactic Acid Level 0.7 mmol/L (0.4-2.0) Troponin I High Sensitivity < 3 ng/L (</=54) Erythrocyte Sedimentation Rate 6 mm/hr (0-20) Hemoglobin A1c 5.2 % A1C (<5.7) Uric Acid 6.4 mg/dL (3.7-9.2) C-Reactive Protein High Sensitivity 0.09 mg/dL (<1.0) Triglycerides Level 117 mg/dL (< 150) Cholesterol Level 167 mg/dL (< 200) LDL Cholesterol 100 mg/dL (< 100) HDL Cholesterol 54 mg/dL (40-59) Other Laboratory Tests 04/07/25 04:30 04/06/25 04:33 Brief Hx & Hospital Course: Final diagnoses: Syncope, recurrent, most likely due to seizures Acute kidney injury most likely due to vasomotor nephropathy Bradycardia Hypotension Osteoarthritis of the right knee with a Reed's cyst Rule out heart failure Rule out coronary artery disease Chronic alcohol use disorder 54-year-old male was admitted due to a syncopal episode, this was a recurrent problem for him for years, this time was at work with known triggers although in the past he said all the episodes were triggered by something like 1 time by heavy alcohol intake and other times by stress He was admitted here and evaluation was done with MRI of the brain and MRA which were normal CT scan of the head was negative EKG was normal Throughout his hospitalization he was borderline bradycardic about 55-65 Cardiology and Neurology were consulted Echocardiogram was done was normal except for mild right ventricular and atrial Carotid Doppler was normal Enlargement cardiology recommended a loop recorder which was done this morning Neurology also saw the patient and recommended that this might be an epileptic disorder and therefore recommended start the patient on Keppra 500 mg twice a day Endocrinology was also consulted for possibility of hypoglycemia, they recommended send the patient home with a glucometer Overall the patient remained asymptomatic here He had a stress test which was normal Discharge the patient on Keppra 500 mg b.i.d. Loop recorder was done this morning by Dr. Holman Follow up with Dr. Holman as an outpatient Follow up with his primary care physician as soon as possible Condition at Discharge: Stable Final Diagnosis/Problems List Syncope, recurrent, most likely due to seizures Acute kidney injury most likely due to vasomotor nephropathy Bradycardia Hypotension Osteoarthritis of the right knee with a Reed's cyst Rule out heart failure Rule out coronary artery disease Chronic alcohol use disorder Discharge Disposition: Home SNF Discharge Will this Physician continue t: No Discharge Instruct/Medications Diet: Cardiac 2g Na,low cholest Activity: No Restrictions, As Tolerated Follow Up/Referral: PCP as soon as possible Dr. Holman as scheduled Medications: Keppra 500 mg twice a day Discharge Statement: "Patient was advised to return to the ER or call 911 if any headaches, dizziness, shortness of breath, chest pain, abdominal pain, bleeding, fevers, or worsening of medical condition. Patient was counseled about treatment plan, medications, possible side effects, patientverbalized understanding. All questions were answered to the best of my ability. This discharge took greater then 30 minutes in planning, reviewing documentation, counseling the patient, and discussing with other team members." ASSESSMENT ASSESSMENT Assessment Syncope Date of Service: April 10, 2025 Billing Provider: DOMENICO SERRANO MD Common Visit Codes: 57762-HBQ/OBS DISCH DAY >30min DOMENICO SERRANO MD April 10, 2025 22:06
--- NOTE | 2025-04-11 03:15 | DVHOP ---
DATE OF SURGERY: 04/10/2025 TECHNIQUE PERFORMED: * Insertion of a loop recorder ([employer], MRI approved). * Management of conscious sedation. COMPLICATIONS: None. MANAGER PLACEMENT: Assisted by our staff over here is Cardiac Treatment Manager staff including ____. INDICATIONS: Several syncopal episodes. DESCRIPTION OF PROCEDURE: Risks and benefits were discussed in a standard manner. The patient has been brought to our lab. Indications, risks and benefits all have been explained. He gave me informed consent. Left parasternal area was thoroughly cleaned with soap and Betadine. Lidocaine was given. IV Versed and fentanyl was given. Incision was made with the help of a Buzzwire blade and we have now put loop recorder in a standard manner. Pressure was applied. Bleeding was stopped. ____ total of 3-0 Monocryl cuticular suture also had been applied. Dermabond applied and Telfa and Opsite applied. Procedure went well. There were no complications. CONCLUSION: As follows: Successful placement of the loop recorder. Arturo Holman MD MP/NICHOLE/ELVA TID: [id number] RECEIPT: [id number]
== END 2025-04-10 12:45 | disposition home or self-care (01) | DRG 40 ==
LOC: EEVIPCON 10:22 → ER 10:22 → EDBD 10:22 → OVERFLOW 15:32 → CENTRAL 17:24 → TELE-CENTR 17:42
PROVIDERS: ADMIT Internal Medicine Geriatric Medicine; ATTEND Internal Medicine Geriatric Medicine
PROC: 0JH632Z Insertion of Monitoring Device into Chest Subcutaneous Tissue and Fascia, Percutaneous Approach (ICD-10-PCS; principal; 2025-04-10)
DX: R56.9 Unspecified convulsions (principal); N17.0 Acute kidney failure with tubular necrosis; M00.9 Pyogenic arthritis, unspecified; G90.89 Other disorders of autonomic nervous system; E66.9 Obesity, unspecified; M17.11 Unilateral primary osteoarthritis, right knee; M71.21 Synovial cyst of popliteal space [Baker], right knee; R00.1 Bradycardia, unspecified; I95.9 Hypotension, unspecified; M10.9 Gout, unspecified; I50.9 Heart failure, unspecified; I25.10 Atherosclerotic heart disease of native coronary artery without angina pectoris; F10.10 Alcohol abuse, uncomplicated; Z68.32 Body mass index [BMI] 32.0-32.9, adult; Z83.3 Family history of diabetes mellitus; Z82.49 Family history of ischemic heart disease and other diseases of the circulatory system
CPT/HCPCS: 33285; 36415; 70450; 70545; 70551; 71045; 73564; 73721; 78452; 80053; 80061; 81001; 82533; 82607; 82746; 83036; 83605; 83735; 84443; 84484; 84550; 85025; 85610; 85652; 85730; 86141; 86850; 86900; 86901; 87040; 93005; 93017; 93306; 93886; 95819; 96361; 96365; 99152; G0378; J2250